=== PATIENT | male | born 1980 | race Caucasian/White ===

== ENCOUNTER 2017-02-12 02:00 | Emergency (ER) | payer MEDICAID, OTHER ==
[2017-02-12 02:00] VITALS: BMI 31.8
[2017-02-12 02:44] VITALS: BP 142/76; PULSE 78; O2SAT 99
[2017-02-12 02:46] VITALS: TEMP 97.8
--- NOTE | 2017-02-12 02:56 | ED PDOC ---
Arrival/HPI - General Chief Complaint: Medical Clearance Time Seen by Provider: 02/12/17 02:48 Historian: Patient - History of Present Illness Narrative History of Present Illness (Text): 02/12/17 02:56 Angel Gutierrez is a 36 year old male who presents to the emergency department complaining of erythematous rash to forehead for past 2 days. Associated symptoms include pain to the area of rash. Denies any fever, chills, chest pain , shortness of breath, facial swelling, pruritus, or any other complaints at this time. Time/Duration: < week Symptom Onset: Gradual Severity Level: Mild Activities at Onset: Light Past Medical History - Provider Review Nursing Documentation Reviewed: Yes - Infectious Disease Hx of Infectious Diseases: None - Reproductive Currently : No - Cardiac Hx Cardiac Disorders: No - Pulmonary Hx Respiratory Disorders: No - Neurological Hx Neurological Disorder: No - HEENT Hx HEENT Disorder: No - Renal Other/Comment: 1 FUNCTIONING KIDNEY per patient. 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, coccaine - Anesthesia Hx Anesthesia: No Hx Anesthesia Reactions: No Hx Malignant Hyperthermia: No - Suicidal Assessment Feels Threatened In Home Enviroment: No Family/Social History - Physician Review Nursing Documentation Reviewed: Yes Family/Social History: No Known Family HX Smoking Status: Heavy Smoker > 10 Cigarettes Daily Hx Alcohol Use: No Hx Substance Use: Yes (coccaine, heroine) Hx Substance Use Treatment: No Allergies/Home Meds Allergies/Adverse Reactions: Allergies iodine Allergy (Verified 02/12/17 02:41) RASH shellfish derived Allergy (Verified 02/12/17 02:41) RASH dye Allergy (Uncoded 02/12/17 02:41) RASH Home Medications: Home Meds Medication Instructions Recorded Confirmed Methadone [Methadone HCl] 140 mg PO DAILY 02/12/17 02/12/17 Review of Systems - Physician Review All systems were reviewed & negative as marked: Yes - Review of Systems Constitutional: Normal. absent: Fatigue, Fevers Eyes: Normal ENT: Normal Respiratory: Normal. absent: SOB, Cough, Sputum Cardiovascular: Normal. absent: Chest Pain, Palpitations Gastrointestinal: Normal. absent: Abdominal Pain, Diarrhea, Nausea, Vomiting Skin: Rash (forehead ). absent: Pruritis Neurological: Normal. absent: Headache, Dizziness Psychiatric: Normal Physical Exam Vital Signs Reviewed: Yes Vital Signs Temp Pulse Resp BP Pulse Ox 02/12/17 04:00 20 02/12/17 02:43 97.8 F 78 18 142/76 99 Temperature: Afebrile Blood Pressure: Normal Pulse: Regular Respiratory Rate: Normal Appearance: Positive for: Well-Appearing, Non-Toxic, Comfortable Pain Distress: None Mental Status: Positive for: Alert and Oriented X 3 - Systems Exam Head: Present: Atraumatic, Normocephalic Pupils: Present: PERRL Extroacular Muscles: Present: EOMI Conjunctiva: Present: Normal Mouth: Present: Moist Mucous Membranes Respiratory/Chest: Present: Clear to Auscultation, Good Air Exchange. No: Respiratory Distress, Accessory Muscle Use Cardiovascular: Present: Regular Rate and Rhythm, Normal S1, S2. No: Murmurs Abdomen: Present: Normal Bowel Sounds. No: Tenderness, Distention, Peritoneal Signs Upper Extremity: Present: Normal Inspection. No: Cyanosis, Edema Lower Extremity: Present: Normal Inspection. No: Edema Neurological: Present: GCS=15, CN II-XII Intact, Speech Normal Skin: Present: Warm, Dry, Rashes (vesicular rash on forehead ), Normal Color Psychiatric: Present: Alert, Oriented x 3, Normal Insight, Normal Concentration Medical Decision Making ED Course and Treatment: 02/12/17 03:03 Impression: A 36 year old male who presents to the emergency department for evaluation of rash on forehead. Plan: -- Famvir -- Ultracet -- Reassess and disposition Progress Notes: 02/12/17 03:46 On re-evaluation, patient feels better and is in no acute distress. I have discussed the results and plan with the patient, who expresses understanding. Patient in agreement with plan to be discharged home. Patient is stable for discharge. Patient was instructed to follow up with physician or return if symptoms worsen or new concerning symptoms arise. stressed importance of ophthalmology follow up 02/14/17 08:53 Re-evaluation Time: 03:46 Reassessment Condition: Re-examined, Improved - Medication Orders Current Medication Orders: Discontinued Medications Famciclovir (Famvir) 500 mg PO STAT STA Stop: 02/12/17 02:56 Last Admin: 02/12/17 03:57 Dose: 500 mg Tramadol/Acetaminophen (Ultracet 37.5/325 Mg) 1 tab PO ONCE STA Stop: 02/12/17 03:49 Last Admin: 02/12/17 03:51 Dose: 1 tab Tramadol/Acetaminophen (Ultracet 37.5/325 Mg) Confirm Administered Dose 1 tab .ROUTE .STK-MED ONE Stop: 02/12/17 03:52 Last Admin: 02/12/17 03:57 Dose: - Scribe Statement The provider has reviewed the documentation as recorded by the Rafaelaibe Zay Posadas Provider Attestation: Provider Scribe Attestation: All medical record entries made by the Scribe were at my direction and personally dictated by me. I have reviewed the chart and agree that the record accurately reflects my personal performance of the history, physical exam, medical decision making, and the department course for this patient. I have also personally directed, reviewed, and agree with the discharge instructions and disposition. Disposition/Present on Arrival - Present on Arrival Any Indicators Present on Arrival: No History of DVT/PE: No History of Uncontrolled Diabetes: No Urinary Catheter: No History of Decub. Ulcer: No History Surgical Site Infection Following: None - Disposition Have Diagnosis and Disposition been Completed?: Yes Diagnosis: Herpes zoster Disposition: HOME/ ROUTINE Disposition Time: 03:47 Condition: GOOD Discharge Instructions (ExitCare): Shingles (ED) Prescriptions: Famciclovir [Famvir] 500 mg PO TID #21 tab Referrals: Casper Ramos MD [Staff Provider] - Follow up with primary Forms: [employer] ([place])
[2017-02-12] MEDS ORDERED: Oxycodone/Acetaminophen 5/325 mg Tab PO STA (03:33)
[2017-02-12] MEDS ORDERED: TraMADol/Apap 37.5/325 mg Tab PO STA (03:48)
[2017-02-12] MEDS ORDERED: TraMADol/Apap 37.5/325 mg Tab ONE (03:51)
[2017-02-12 06:13] VITALS: RESP 20
== END 2017-02-12 03:50 | disposition home or self-care (01) ==
LOC: ED 02:00
DX: B02.9 Zoster without complications (principal)

== ENCOUNTER 2017-03-24 05:30 | Emergency (ER) | payer MEDICAID ==
[2017-03-24 05:31] VITALS: BMI 31.8
--- NOTE | 2017-03-24 05:50 | ED PDOC ---
Arrival/HPI <Kota Pickett - Last Filed: 03/24/17 14:46> - General Historian: Patient - History of Present Illness Time/Duration: Other (tonight) Symptom Onset: Sudden Symptom Course: Unchanged Activities at Onset: Light Context: Home <Amandeep Shaver - Last Filed: 03/24/17 20:08> - General Time Seen by Provider: 03/24/17 05:32 - History of Present Illness Narrative History of Present Illness (Text): 03/24/17 05:46 Angel Gutierrez is a 36 year old male who presents to the Emergency department complaining of right hand pain status post injury. Patient states he fell on to his outstretched right hand yesterday and is now experiencing pain with some swelling to his right hand/wrist. Patient denies any weakness/numbness/tingling in the extremity, other trauma/injury, or any other complaints. Patient is requesting pain medication. (Amandeep Shaver) Past Medical History - Provider Review Nursing Documentation Reviewed: Yes - Infectious Disease Hx of Infectious Diseases: None - Reproductive Currently : No - Cardiac Hx Cardiac Disorders: No - Pulmonary Hx Respiratory Disorders: No - Neurological Hx Neurological Disorder: No - HEENT Hx HEENT Disorder: No - Renal Other/Comment: 1 FUNCTIONING KIDNEY per patient. 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, coccaine - Anesthesia Hx Anesthesia: No Hx Anesthesia Reactions: No Hx Malignant Hyperthermia: No - Suicidal Assessment Feels Threatened In Home Enviroment: No <Amandeep Shaver - Last Filed: 03/24/17 20:08> Family/Social History - Physician Review Nursing Documentation Reviewed: Yes Family/Social History: Unknown Family HX Smoking Status: Heavy Smoker > 10 Cigarettes Daily Hx Alcohol Use: No Hx Substance Use: Yes (coccaine, heroine) Hx Substance Use Treatment: No <Amandeep Shaver - Last Filed: 03/24/17 20:08> Allergies/Home Meds <Kota Pickett - Last Filed: 03/24/17 14:46> <Amandeep Shaver - Last Filed: 03/24/17 20:08> Allergies/Adverse Reactions: Allergies iodine Allergy (Verified 03/24/17 05:55) RASH shellfish derived Allergy (Verified 03/24/17 05:55) RASH dye Allergy (Uncoded 03/24/17 05:55) RASH Review of Systems - Physician Review All systems were reviewed & negative as marked: Yes - Review of Systems Constitutional: Normal. absent: Fevers Eyes: Normal ENT: Normal Respiratory: Normal. absent: SOB, Cough Cardiovascular: Normal. absent: Chest Pain Gastrointestinal: Normal. absent: Abdominal Pain, Diarrhea, Nausea, Vomiting Genitourinary Male: Normal. absent: Dysuria, Frequency, Hematuria, Urinary Output Changes Musculoskeletal: Arthralgias (+right hand/wrist pain). absent: Back Pain, Neck Pain Skin: Normal. absent: Rash Neurological: Normal. absent: Headache, Dizziness Endocrine: Normal Hemo/Lymphatic: Normal Psychiatric: Normal <AnitaabramAmandeep - Last Filed: 03/24/17 20:08> Physical Exam Vital Signs Reviewed: Yes Temperature: Afebrile Blood Pressure: Normal Pulse: Regular Respiratory Rate: Normal Appearance: Positive for: Well-Appearing, Non-Toxic, Comfortable Pain Distress: None Mental Status: Positive for: Alert and Oriented X 3 - Systems Exam Head: Present: Atraumatic, Normocephalic Pupils: Present: PERRL Extroacular Muscles: Present: EOMI Conjunctiva: Present: Normal Mouth: Present: Moist Mucous Membranes Upper Extremity: Present: Normal ROM, NORMAL PULSES, Neurovascularly Intact, Capillary Refill < 2s, Other (Ecchymosis over right hypothenar eminence). No: Cyanosis, Edema, Tenderness, Erythema, Deformity Lower Extremity: Present: Normal Inspection. No: Edema Neurological: Present: GCS=15, CN II-XII Intact, Speech Normal Skin: Present: Warm, Dry, Normal Color. No: Rashes Psychiatric: Present: Alert, Oriented x 3, Normal Insight, Normal Concentration <AnitaabramAmandeep - Last Filed: 03/24/17 20:08> Vital Signs Temp Pulse Resp BP Pulse Ox 03/24/17 05:58 98.3 F 86 16 115/74 97 Medical Decision Making - RAD Interpretation Safety Representative: Radiologist <Pickett,Kota Q - Last Filed: 03/24/17 14:46> Re-evaluation Time: 06:40 Reassessment Condition: Re-examined, Improved - RAD Interpretation Safety Representative: ED Physician <Amandeep Shaver - Last Filed: 03/24/17 20:08> ED Course and Treatment: 03/24/17 14:46 As per the radiologist Dr. Chilel: Rt. hand/wrist xray official reading as per radiologist IMPRESSION: There is an intra-articular fracture of the base of the proximal 5th metacarpal that, the age of which appears subacute to chronic. Questionable surrounding callus formation versus resorption of bony fragments however clinical correlation recommended. Degenerative changes of the proximal 5th metacarpal and hamate. Rule out acute injury superimposed on chronic injury. Soft tissue swelling is present as well though most pronounced along the dorsal and ulnar margins of the hand. Degenerative changes of the proximal 5th metacarpal and hamate. . Note this report was placed in PA review folder for followup IMPRESSION: There is an intra-articular fracture of the base of the proximal 5th metacarpal that, the age of which appears subacute to chronic. Questionable surrounding callus formation versus resorption of bony fragments however clinical correlation recommended. Degenerative changes of the proximal 5th metacarpal and hamate. . Soft tissue swelling is present as well though most pronounced along the dorsal and ulnar margins of the hand. Degenerative changes of the proximal 5th metacarpal and hamate. Note this report was placed in PA review folder for followup I attempted to call the patient regarding about the xray readings, answer by another person as the patient is not available, advised to call back. (Kota Pickett) 03/24/17 05:46 Impression: 36 year old male complaining of right hand/wrist pain status post fall tonight. Differential Diagnosis included but are not limited to: fracture vs. sprain Plan: -- XR Right Hand -- XR Wrist Hand -- Percocet -- Reassess and disposition Prior Visits: Notes and results from previous visits were reviewed. On 02/12/2017, pt was seen in the Emergency department complaining of a rash. Pt was d/c home. Progress Notes: 03/24/17 06:39 Reviewed radiology, XR Right Hand shows no acute fracture/processes.BASE 5TH metacarpal chronic changes no acute fx XR Right Wrist shows no acute fracture/processes. 03/24/17 06:40 On reevaluation the patient feels better and is in no acute distress. I have discussed the results and plan with the patient, who expresses understanding. Patient given the opportunity to ask question, all questions were answered and there is agreement with the plan to discharge the patient home. Patient is stable for discharge. Patient was instructed to follow up with physician/clinic in 1-2 days or return if symptoms persist/worsen or new concerning symptoms arise. 03/24/17 20:08 (Amandeep Shaver) - RAD Interpretation Radiology Orders: 03/24/17 05:56 HAND RIGHT 3 VIEWS [RAD] Stat WRIST, RIGHT 3 VIEWS [RAD] Stat - Medication Orders Current Medication Orders: Discontinued Medications Ketorolac Tromethamine (Toradol) 30 mg IM ONCE ONE Stop: 03/24/17 06:47 Last Admin: 03/24/17 06:54 Dose: 30 mg Oxycodone/Acetaminophen (Percocet 5/325 Mg Tab) 1 tab PO STAT STA Stop: 03/24/17 05:57 Last Admin: 03/24/17 06:04 Dose: 1 tab <Kota Pickett - Last Filed: 03/24/17 14:46> - Scribe Statement The provider has reviewed the documentation as recorded by the Scribe <Amandeep Shaver - Last Filed: 03/24/17 20:08> - Scribe Statement Michelle Masters Provider Scribe Attestation: All medical record entries made by the Scribe were at my direction and personally dictated by me. I have reviewed the chart and agree that the record accurately reflects my personal performance of the history, physical exam, medical decision making, and the department course for this patient. I have also personally directed, reviewed, and agree with the discharge instructions and disposition. (Amandeep Shaver) Disposition/Present on Arrival <Kota Pickett - Last Filed: 03/24/17 14:46> - Present on Arrival Any Indicators Present on Arrival: No History of DVT/PE: No History of Uncontrolled Diabetes: No Urinary Catheter: No History Surgical Site Infection Following: None - Disposition Have Diagnosis and Disposition been Completed?: Yes Disposition Time: 06:40 <Amandeep Shaver - Last Filed: 03/24/17 20:08> - Disposition Diagnosis: Contusion of hand, right Disposition: HOME/ ROUTINE Condition: GOOD Discharge Instructions (ExitCare): Hand Sprain (ED) Additional Instructions: use splint 4 to 5 days follow up with orthopedics Prescriptions: Naproxen [Naprosyn Tab] 375 mg PO BID #12 tab Referrals: [facility] [place] [Outside] - [place] [facility] [place] [facility] [place] - Follow up with primary Forms: [employer] ([place])
[2017-03-24] MEDS ORDERED: Oxycodone/Acetaminophen 5/325 mg Tab PO STA (05:56)
[2017-03-24 06:02] VITALS: BP 115/74; PULSE 86; RESP 16; TEMP 98.3; O2SAT 97
--- NOTE | 2017-03-24 11:14 | RAD ---
PROCEDURE: Right wrist dated 03/24/2017 HISTORY: f status post fall COMPARISON: No prior study available comparison however correlation made with concurrent radiographs the common the right hand FINDINGS: BONES: There is an intra-articular fracture of the base of the proximal 5th metacarpal that, the age of which appears subacute to chronic. Questionable surrounding callus formation versus resorption of bony fragments however clinical correlation recommended. Degenerative changes of the proximal 5th metacarpal and hamate. . Soft tissue swelling is present as well though most pronounced along the dorsal and ulnar margins of the hand. JOINTS: As above. There is also negative ulnar variance. SOFT TISSUES: Normal. OTHER FINDINGS: None. IMPRESSION: There is an intra-articular fracture of the base of the proximal 5th metacarpal that, the age of which appears subacute to chronic. Questionable surrounding callus formation versus resorption of bony fragments however clinical correlation recommended. Degenerative changes of the proximal 5th metacarpal and hamate. . Soft tissue swelling is present as well though most pronounced along the dorsal and ulnar margins of the hand. Degenerative changes of the proximal 5th metacarpal and hamate. Note this report was placed in PA review folder for followup
--- NOTE | 2017-03-24 11:16 | RAD ---
PROCEDURE: Right Hand Radiographs. HISTORY: fall COMPARISON: None. FINDINGS: BONES: There is an intra-articular fracture of the base of the proximal 5th metacarpal that, the age of which appears subacute to chronic. Questionable surrounding callus formation versus resorption of bony fragments however clinical correlation recommended. Degenerative changes of the proximal 5th metacarpal and hamate. Rule out acute injury superimposed on chronic at injury. Soft tissue swelling is present as well though most pronounced along the dorsal and ulnar margins of the hand. Note this report was placed in PA review folder for followup JOINTS: Degenerative changes of the proximal 5th metacarpal and hamate. SOFT TISSUES: Normal. OTHER FINDINGS: None. IMPRESSION: There is an intra-articular fracture of the base of the proximal 5th metacarpal that, the age of which appears subacute to chronic. Questionable surrounding callus formation versus resorption of bony fragments however clinical correlation recommended. Degenerative changes of the proximal 5th metacarpal and hamate. Rule out acute injury superimposed on chronic injury. Soft tissue swelling is present as well though most pronounced along the dorsal and ulnar margins of the hand. Degenerative changes of the proximal 5th metacarpal and hamate. . Note this report was placed in PA review folder for followup
== END 2017-03-24 06:56 | disposition home or self-care (01) ==
LOC: ED 05:30
DX: S60.221A Contusion of right hand, initial encounter (principal); W19.XXXA Unspecified fall, initial encounter
CPT/HCPCS: 73110; 73130; 96372; 99284; J1885

== ENCOUNTER 2017-05-09 01:45 | Emergency (ER) | payer MEDICAID ==
[2017-05-09 01:45] VITALS: BMI 31.8
[2017-05-09 02:00] VITALS: BP 145/92; TEMP 98.1
--- NOTE | 2017-05-09 02:04 | ED PDOC ---
Arrival/HPI - General Time Seen by Provider: 05/09/17 01:49 Historian: Patient - History of Present Illness Narrative History of Present Illness (Text): 05/09/17 02:04 Angel Gutierrez is a 37 year old male, whose past medical history include atrophic kidney, hepatitis C, and substance abuse, who presents to the Emergency department complaining of abdominal pain. Patient states he has been experiencing intermittent diffuse abdominal pain since yesterday morning, gradually worsening tonight. Patient also reports pain to right inguinal hernia. Patient denies fever, chills, chest pain, shortness of breath, nausea, vomiting, diarrhea, urinary symptoms, back pain, headache,or any other complaints. Time/Duration: Other (yesterday) Symptom Onset: Gradual Symptom Course: Unchanged Activities at Onset: Light Context: Home Past Medical History - Provider Review Nursing Documentation Reviewed: Yes - Infectious Disease Hx of Infectious Diseases: None - Reproductive Currently : No - Cardiac Hx Cardiac Disorders: No - Pulmonary Hx Respiratory Disorders: No - Neurological Hx Neurological Disorder: No - HEENT Hx HEENT Disorder: No - Renal Other/Comment: 1 FUNCTIONING KIDNEY per patient. 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, coccaine - Anesthesia Hx Anesthesia: No Hx Anesthesia Reactions: No Hx Malignant Hyperthermia: No - Suicidal Assessment Feels Threatened In Home Enviroment: No Family/Social History - Physician Review Nursing Documentation Reviewed: Yes Family/Social History: Unknown Family HX Smoking Status: Heavy Smoker > 10 Cigarettes Daily Hx Alcohol Use: No Hx Substance Use: No (coccaine, heroine) Hx Substance Use Treatment: No Allergies/Home Meds Allergies/Adverse Reactions: Allergies iodine Allergy (Verified 05/09/17 01:56) RASH shellfish derived Allergy (Verified 05/09/17 01:56) RASH dye Allergy (Uncoded 05/09/17 01:56) RASH Home Medications: Home Meds Medication Instructions Recorded Confirmed No Known Home Med 05/09/17 05/09/17 Review of Systems - Physician Review All systems were reviewed & negative as marked: Yes - Review of Systems Constitutional: Normal. absent: Fevers Eyes: Normal ENT: Normal Respiratory: Normal. absent: SOB, Cough Cardiovascular: Normal. absent: Chest Pain Gastrointestinal: Abdominal Pain. absent: Diarrhea, Nausea, Vomiting Genitourinary Male: Normal. absent: Dysuria, Frequency, Hematuria, Urinary Output Changes Musculoskeletal: Normal. absent: Back Pain, Neck Pain Skin: Normal. absent: Rash Neurological: Normal. absent: Headache, Dizziness Endocrine: Normal Hemo/Lymphatic: Normal Psychiatric: Normal Physical Exam Vital Signs Reviewed: Yes Vital Signs Temp Pulse Resp BP Pulse Ox 05/09/17 03:51 95 H 18 145/92 H 98 05/09/17 01:57 98.1 F 83 16 145/92 H 97 Temperature: Afebrile Blood Pressure: Normal Pulse: Regular Respiratory Rate: Normal Appearance: Positive for: Well-Appearing, Non-Toxic, Comfortable Pain Distress: None Mental Status: Positive for: Alert and Oriented X 3 - Systems Exam Head: Present: Atraumatic, Normocephalic Pupils: Present: PERRL Extroacular Muscles: Present: EOMI Conjunctiva: Present: Normal Mouth: Present: Moist Mucous Membranes Neck: Present: Normal Range of Motion Respiratory/Chest: Present: Clear to Auscultation, Good Air Exchange. No: Respiratory Distress, Accessory Muscle Use Cardiovascular: Present: Regular Rate and Rhythm, Normal S1, S2. No: Murmurs Abdomen: Present: Tenderness (lower abdomen), Normal Bowel Sounds, Hernias ( Reducible right inguinal hernia/some palpable tenderness). No: Distention, Peritoneal Signs, Rebound, Guarding Back: Present: Normal Inspection Upper Extremity: Present: Normal Inspection. No: Cyanosis, Edema Lower Extremity: Present: Normal Inspection. No: Edema Neurological: Present: GCS=15, CN II-XII Intact, Speech Normal Skin: Present: Warm, Dry, Normal Color. No: Rashes Psychiatric: Present: Alert, Oriented x 3, Normal Insight, Normal Concentration Medical Decision Making ED Course and Treatment: 05/09/17 02:04 Impression: 37 year old male complaining of diffuse abdominal pain since yesterday, worse tonight. Plan: -- CT Abdomen and Pelvis with PO contrast -- Labs, lipase -- IV fluids -- Toradol -- Reassess and disposition Prior Visits: Notes and results from previous visits were reviewed. On 03/24/2017, pt was seen in the Emergency department for right hand pain s/p injury. Pt was d/c home. Progress Notes: 05/09/17 05:31 Reviewed radiology, CT Abdomen and Pelvis shows: 1. Right inguinal herniation of fat and fluid. There is infiltration of the right inguinal herniated fat. These findings are new when compared to prior examination from May 23, 2015. 2. Contracted gallbladder with gallbladder wall thickening and possible hyperdense gallstone or artifact. 3. The spleen measures 17 cm. Correlation with internal medicine evaluation and further workup or followup as recommended by patient's clinical data. 05/09/17 05:35 Discussed results and plan with pt. Pt was offered hospital admission for further evaluation. Pt does not wish to stay, states he family matters to take care of and will return at a later date. Pt was strongly advised need for further evaluation of possible underlying intestinal infection/appendicitis/ hernia strangulation. Pt will sign out against medical advice. The patient is choosing to leave against medical advice. I have personally explained to the patient that choosing to do so may result in permanent bodily harm or . I have discussed at great length that without further evaluation and monitoring there may be unforeseen circumstances and/or deterioration causing permanent bodily harm or as a result of their choice. The patient is alert, oriented, and shows the mental capacity to make clear decisions regarding the patients health care at this time. The patient continues to wish to leave against medical advice. In light of the patients decision to leave against medical advice, patient was made aware of the importance to following up as instructed. The patient has been advised that they should return to the emergency room immediately if they change their mind at any time, or if their condition begins to change or worsen in any way. - Lab Interpretations Lab Results: 05/09/17 02:22 05/09/17 02:22 Lab Results 05/09/17 03:08: Urine Color Yellow, Urine Appearance Clear, Urine pH 6.5, Ur Specific [place] 1.025, Urine Protein Negative, Urine Glucose (UA) Negative, Urine Ketones Negative, Urine Blood Negative, Urine Nitrate Negative, Urine Bilirubin Negative, Urine Urobilinogen 0.2, Ur Leukocyte Esterase Negative 05/09/17 02:22: WBC 3.5 L, RBC 5.15, Hgb 12.8 L, Hct 39.3 L, MCV 76.3 L, MCH 24.9 L, MCHC 32.6, RDW 15.0 H, Plt Count 164, MPV 9.6 05/09/17 02:22: Sodium 142, Potassium 4.3, Chloride 103, Carbon Dioxide 32, Anion Gap 11, BUN 20, Creatinine 1.0, Est GFR ( Amer) > 60, Est GFR (Non- Af Amer) > 60, Random Glucose 99, Calcium 9.4, Total Bilirubin 0.6, AST 35, ALT 43, Alkaline Phosphatase 63, Total Protein 7.2, Albumin 3.8, Globulin 3.4, Albumin/Globulin Ratio 1.1, Lipase 55 I have reviewed the lab results: Yes - RAD Interpretation Narrative RAD Interpretations (Text): CT Abdomen and Pelvis shows: Lower thorax: Small hiatal hernia. ABDOMEN: Liver: Unremarkable. No mass. Gallbladder and bile ducts: Contracted gallbladder with gallbladder wall thickening and possible hyperdense gallstone or artifact. Pancreas: Unremarkable. No mass. No ductal dilation. Spleen: The spleen measures 17 cm. Adrenals: Unremarkable. No mass. Kidneys and ureters: Atrophic dysplastic left kidney with cortical calcifications. No hydronephrosis. Stomach and bowel: Diverticulosis. Moderate to moderate amount of stool in the colon. No obstruction. No mucosal thickening. Appendix: The appendix not identified with complete certainty due to unopacified cecum and distal small bowel. There is lack of intra-abdominal fat. If clinical concern remains, a repeat study with thin sections after an appropriate time interval may allow oral contrast to opacify the cecum. PELVIS: Bladder: Partially distended bladder with bladder wall thickening. Correlation with urinalysis is recommended only if clinical cystitis is suspected. Reproductive: Unremarkable. ABDOMEN and PELVIS: Intraperitoneal space: Unremarkable. No free air. No significant fluid collection. Bones/joints: No acute fracture. No dislocation. Soft tissues: Right inguinal herniation of fat and fluid. There is infiltration of the right inguinal herniated fat. These findings are new when compared to prior examination from May 23, 2015. Mild left inguinal herniation of fat. Vasculature: There is enlargement of portal vein with perigastric and perisplenic varices representing portal hypertension. No abdominal aortic aneurysm. Lymph nodes: Bilateral groin lymph nodes. Subcentimeter para-aortic and retroperitoneal lymph nodes. IMPRESSION: 1. Right inguinal herniation of fat and fluid. There is infiltration of the right inguinal herniated fat. These findings are new when compared to prior examination from May 23, 2015. 2. Contracted gallbladder with gallbladder wall thickening and possible hyperdense gallstone or artifact. 3. The spleen measures 17 cm. Correlation with internal medicine evaluation and further workup or followup as recommended by patient's clinical data. 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: Radiologist - Medication Orders Current Medication Orders: Discontinued Medications Sodium Chloride (Sodium Chloride 0.9%) 1,000 mls @ 999 mls/hr IV .Q1H1M STA Stop: 05/09/17 03:05 Last Admin: 05/09/17 02:41 Dose: 999 mls/hr eMAR Start Stop Document 05/09/17 02:41 SS (Rec: 05/09/17 02:41 SS [id number]) Intravenous Solution Start Date 05/09/17 Start Time 02:41 End Date 05/09/17 End time 03:41 Total Infusion Time 60 Ketorolac Tromethamine (Toradol) 30 mg IVP ONCE ONE Stop: 05/09/17 02:09 Last Admin: 05/09/17 02:41 Dose: 30 mg MAR Pain Assessment Document 05/09/17 02:41 SS (Rec: 05/09/17 02:42 SS [id number]) Pain Reassessment Is this a pain reassessment? No Sleep Is patient sleeping during reassessment? No Presence of Pain Presence of Pain Yes Pain Scale Used Pain Scale Used Numeric Location Pain Location Body Site Abdomen Description Intensity of Pain at present 10 Pain Behavior Facial Grimacing IVP Administration Document 05/09/17 02:41 SS (Rec: 05/09/17 02:42 SS [id number]) Charges for Administration # of IVP Administrations 1 Morphine Sulfate (Morphine) 4 mg IVP STAT STA Stop: 05/09/17 04:44 Last Admin: 05/09/17 04:56 Dose: 4 mg IVP Administration Document 05/09/17 04:56 SS (Rec: 05/09/17 04:56 SS [id number]) Charges for Administration # of IVP Administrations 1 - Scribe Statement The provider has reviewed the documentation as recorded by the Scribe Michelle Guerrero All medical record entries made by the Scribe were at my direction and personally dictated by me. I have reviewed the chart and agree that the record accurately reflects my personal performance of the history, physical exam, medical decision making, and the department course for this patient. I have also personally directed, reviewed, and agree with the discharge instructions and disposition. Disposition/Present on Arrival - Present on Arrival Any Indicators Present on Arrival: No History of DVT/PE: No History of Uncontrolled Diabetes: No Urinary Catheter: No History of Decub. Ulcer: No History Surgical Site Infection Following: None - Disposition Have Diagnosis and Disposition been Completed?: Yes Diagnosis: Abdominal pain Disposition: AGAINST MEDICAL ADVICE Disposition Time: 05:40 Condition: STABLE Referrals: Humberto Johnson MD [Primary Care Provider] - Follow up with primary Forms: [employer] ([place])
[2017-05-09] MEDS ORDERED: Sodium Chloride 0.9% 1,000 ML IV STA (02:05)
[2017-05-09] MEDS ORDERED: Iohexol 240 (50 ml) ONE (02:14)
[2017-05-09 02:43] LABS: ALB/GLOB RATIO 1.1 (1.1-1.8); ALKALINE PHOSPHATASE 63 U/L (38-126); ALT/SGPT 43 U/L (7-56); AST/SGOT 35 U/L (17-59); BILIRUBIN,TOTAL 0.6 mg/dL (0.2-1.3); BLOOD UREA NITROGEN 20 mg/dL (7-21); CALCIUM 9.4 mg/dL (8.4-10.5); CARBON DIOXIDE 32 mmol/L (21-33); CHLORIDE 103 mmol/L (95-110); GFR AFRICAN-AMERICAN > 60; GLUCOSE,RANDOM 99 mg/dL (70-110); LIPASE 55 U/L (23-300); POTASSIUM 4.3 mmol/L (3.6-5.0); SODIUM 142 mmol/L (132-148); TOTAL PROTEIN 7.2 g/dL (5.8-8.3)
[2017-05-09 02:58] LABS: HEMATOCRIT 39.3 % (42.0-52.0); MEAN CELL VOLUME 76.3 fl (80.0-105.0); MEAN CORPUSCULAR HEMOGLOBIN 24.9 pg (25.0-35.0); MEAN CORPUSCULAR HGB CONC 32.6 g/dl (31.0-37.0); MEAN PLATELET VOLUME 9.6 fl (7.0-11.0); WHITE BLOOD COUNT 3.5 10^3/ul (4.5-11.0)
[2017-05-09 03:22] LABS: PH,URINE 6.5 (4.7-8.0); URINE BILIRUBIN NEGATIVE (NEGATIVE); URINE BLOOD NEGATIVE (NEGATIVE); URINE GLUCOSE (UA) NEGATIVE (NEGATIVE); URINE KETONE NEGATIVE (NEGATIVE); URINE LEUKOCYTE ESTERASE NEGATIVE Leu/uL (NEGATIVE); URINE PROTEIN NEGATIVE mg/dL (<30 mg/dL); URINE UROBILINOGEN 0.2 E.U./dL (<1 E.U./dL)
[2017-05-09 03:32] LABS: URINE APPEARANCE CLEAR (CLEAR); URINE COLOR YELLOW (YELLOW)
[2017-05-09 03:52] VITALS: PULSE 95; RESP 18; O2SAT 98
[2017-05-09] MEDS ORDERED: Morphine 5 MG/ML SYRINGE IVP STA (04:43)
--- NOTE | 2017-05-09 05:30 | CT ---
EXAM: CT Abdomen and Pelvis With Intravenous Contrast CLINICAL HISTORY: 37 years old, male; Pain; Abdominal pain; Generalized TECHNIQUE: Axial computed tomography images of the abdomen and pelvis with intravenous contrast. All CT scans at this facility use one or more dose reduction techniques, viz.: automated exposure control; ma/kV adjustment per patient size (including targeted exams where dose is matched to indication; i.e. head); or iterative reconstruction technique. Oral contrast was administered. 715 images are submitted. Axial images are submitted in soft tissue and lung windows. Coronal and sagittal reformatted images were created and reviewed. CONTRAST: 50 mL of OMNI 240 administered intravenously. COMPARISON: CT - ABD PELVIS W/O PO OR IV CONT 2015-05-23 01:21 FINDINGS: Lower thorax: Small hiatal hernia. ABDOMEN: Liver: Unremarkable. No mass. Gallbladder and bile ducts: Contracted gallbladder with gallbladder wall thickening and possible hyperdense gallstone or artifact. Pancreas: Unremarkable. No mass. No ductal dilation. Spleen: The spleen measures 17 cm. Adrenals: Unremarkable. No mass. Kidneys and ureters: Atrophic dysplastic left kidney with cortical calcifications. No hydronephrosis. Stomach and bowel: Diverticulosis. Moderate to moderate amount of stool in the colon. No obstruction. No mucosal thickening. Appendix: The appendix not identified with complete certainty due to unopacified cecum and distal small bowel. There is lack of intra-abdominal fat. If clinical concern remains, a repeat study with thin sections after an appropriate time interval may allow oral contrast to opacify the cecum. PELVIS: Bladder: Partially distended bladder with bladder wall thickening. Correlation with urinalysis is recommended only if clinical cystitis is suspected. Reproductive: Unremarkable. ABDOMEN and PELVIS: Intraperitoneal space: Unremarkable. No free air. No significant fluid collection. Bones/joints: No acute fracture. No dislocation. Soft tissues: Right inguinal herniation of fat and fluid. There is infiltration of the right inguinal herniated fat. These findings are new when compared to prior examination from May 23, 2015. Mild left inguinal herniation of fat. Vasculature: There is enlargement of portal vein with perigastric and perisplenic varices representing portal hypertension. No abdominal aortic aneurysm. Lymph nodes: Bilateral groin lymph nodes. Subcentimeter para-aortic and retroperitoneal lymph nodes. IMPRESSION: 1. Right inguinal herniation of fat and fluid. There is infiltration of the right inguinal herniated fat. These findings are new when compared to prior examination from May 23, 2015. 2. Contracted gallbladder with gallbladder wall thickening and possible hyperdense gallstone or artifact. 3. The spleen measures 17 cm. Correlation with internal medicine evaluation and further workup or followup as recommended by patient's clinical data.
== END 2017-05-09 05:45 | disposition left against medical advice (07) ==
LOC: ED 01:45
DX: R10.9 Unspecified abdominal pain (principal); F17.210 Nicotine dependence, cigarettes, uncomplicated
CPT/HCPCS: 74176; 80053; 81003; 83690; 85027; 96361; 96374; 96375; 99284; J1885; J2270; J7040; Q9966

== ENCOUNTER 2017-08-27 03:31 | Emergency (ER) | payer MEDICAID, OTHER ==
[2017-08-27 03:32] VITALS: BMI 31.8
--- NOTE | 2017-08-27 03:55 | ED PDOC ---
Arrival/HPI - General Chief Complaint: Abdominal Pain Historian: Patient - History of Present Illness Narrative History of Present Illness (Text): 08/27/17 03:53 Pt is a 37 yo M with PMH of hepatitis C and only 1 functioning kidney presents to ED with complaints of right inguinal hernia pain. Pt states that he was evaluated in May for similar pain and was advised to be admitted, but left AMA at that time. CT obtained during that time showed right inguinal herniation of fat and fluid. Pt states that typically he is able to reduce the hernia. But over the last 48 hours patient states that he has been unable to reduce hernia and has vomited several times. Pt denied CP, SOB, diarrhea, constipation, dysuria, erythema, discharge. PMD: [place] Time/Duration: Other (2 days) Symptom Onset: Gradual Symptom Course: Worsening Past Medical History - Infectious Disease Hx of Infectious Diseases: None - Cardiac Hx Cardiac Disorders: No - Pulmonary Hx Respiratory Disorders: No - Neurological Hx Neurological Disorder: No - HEENT Hx HEENT Disorder: No - Renal Other/Comment: 1 FUNCTIONING KIDNEY per patient. 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, coccaine - Surgical History Hx Tonsillectomy: Yes - Anesthesia Hx Anesthesia: No Hx Anesthesia Reactions: No Hx Malignant Hyperthermia: No - Suicidal Assessment Feels Threatened In Home Enviroment: No Family/Social History Family/Social History: No Known Family HX Smoking Status: Heavy Smoker > 10 Cigarettes Daily Hx Alcohol Use: Yes Frequency of alcohol use: Socially Hx Substance Use: No (coccaine, heroine) Hx Substance Use Treatment: No Allergies/Home Meds Allergies/Adverse Reactions: Allergies iodine Allergy (Verified 08/27/17 03:48) RASH shellfish derived Allergy (Verified 08/27/17 03:48) RASH ct scan dye Allergy (Uncoded 08/27/17 03:49) RASH hives Home Medications: Home Meds Medication Instructions Recorded Confirmed No Known Home Med 05/09/17 08/27/17 Review of Systems - Physician Review All systems were reviewed & negative as marked: Yes - Review of Systems Constitutional: Normal Eyes: Normal ENT: Normal Respiratory: Normal Cardiovascular: Normal Gastrointestinal: Abdominal Pain, Nausea, Vomiting. absent: Constipation, Diarrhea Genitourinary Male: Normal. absent: Dysuria, Hematuria Musculoskeletal: Normal Skin: Normal Neurological: Normal Endocrine: Normal Hemo/Lymphatic: Normal Physical Exam Vital Signs Reviewed: Yes Vital Signs Temp Pulse Resp BP Pulse Ox 08/27/17 05:11 97.7 F 65 18 118/66 96 08/27/17 03:44 98.8 F 93 H 18 132/92 H 96 Temperature: Afebrile Blood Pressure: Normal Pulse: Regular Respiratory Rate: Normal Appearance: Positive for: Uncomfortable Pain Distress: Moderate Mental Status: Positive for: Alert and Oriented X 3 - Systems Exam Head: Present: Atraumatic, Normocephalic Extroacular Muscles: Present: EOMI Mouth: Present: Moist Mucous Membranes Neck: Present: Normal Range of Motion Respiratory/Chest: Present: Clear to Auscultation. No: Respiratory Distress, Accessory Muscle Use, Wheezes, Rales, Rhonchi Cardiovascular: Present: Regular Rate and Rhythm, Normal S1, S2. No: Murmurs, Rub, Gallop Abdomen: Present: Tenderness, Hernias (right inguinal). No: Distention, Peritoneal Signs, Rebound, Guarding Upper Extremity: Present: Normal Inspection Lower Extremity: Present: Normal Inspection Neurological: Present: GCS=15 Skin: Present: Warm, Dry, Normal Color Psychiatric: Present: Alert, Oriented x 3 Medical Decision Making ED Course and Treatment: 08/27/17 04:07 Assessment: 37 yo M presents to ED with worsening right inguinal pain and vomiting over last 48 hrs. Plan: - Labs 08/27/17 04:14 Spoke with rn surgical pcu, she will come and evaluate patient. 08/27/17 04:50 resident care spec evaluated patient. Requesting CT abdomen/pelvis with PO contrast, lipase, UA, and influenza. 08/27/17 06:41 Patient endorsed over to Dr. Alonzo. - Lab Interpretations Lab Results: 08/27/17 04:17 08/27/17 04:17 Lab Results 08/27/17 04:52: Urine Color Yellow, Urine Appearance Clear, Urine pH 6.0, Ur Specific [place] 1.025, Urine Protein Negative, Urine Glucose (UA) Negative, Urine Ketones Negative, Urine Blood Negative, Urine Nitrate Negative, Urine Bilirubin Negative, Urine Urobilinogen 0.2, Ur Leukocyte Esterase Negative 08/27/17 04:51: Influenza Typ A,B (EIA) Negative for flu a/b 08/27/17 04:17: Lipase 72 08/27/17 04:17: PT 11.8, INR 1.03, APTT 22.2 L 08/27/17 04:17: Sodium 139, Potassium 4.3, Chloride 101, Carbon Dioxide 29, Anion Gap 14, BUN 23 H, Creatinine 1.0, Est GFR ( Amer) > 60, Est GFR ( Non-Af Amer) > 60, Random Glucose 98, Calcium 9.0, Magnesium 2.1, Total Bilirubin 0.5, AST 31, ALT 37, Alkaline Phosphatase 53, Total Protein 7.4, Albumin 3.9, Globulin 3.5, Albumin/Globulin Ratio 1.1 08/27/17 04:17: WBC 3.6 L, RBC 5.16, Hgb 12.2 L, Hct 39.2 L, MCV 76.0 L, MCH 23.6 L, MCHC 31.1, RDW 15.4 H, Plt Count 176, MPV 9.5, Gran % 63.0, Lymph % ( Auto) 28.1, [place] % (Auto) 7.2 H, Eos % (Auto) 1.4 L, Baso % (Auto) 0.3, Gran # 2.29, Lymph # (Auto) 1.0 L, [place] # (Auto) 0.3, Eos # (Auto) 0.1, Baso # (Auto) 0.01 - RAD Interpretation Radiology Orders: 08/27/17 04:47 ABD & PELVIS PO CONTRAST ONLY [CT] Stat Disposition/Present on Arrival - Present on Arrival Any Indicators Present on Arrival: No History of DVT/PE: No History of Uncontrolled Diabetes: No Urinary Catheter: No History of Decub. Ulcer: No History Surgical Site Infection Following: None - Disposition Have Diagnosis and Disposition been Completed?: No Diagnosis: Inguinal hernia Disposition Time: 07:04 Condition: STABLE Forms: [employer] ([place])
[2017-08-27 04:51] LABS: BASO # 0.01 K/mm3 (0.0-2.0); BASO % 0.3 % (0.0-3.0); EOS # 0.1 (0.0-0.7); EOS % 1.4 % (1.5-5.0); GRAN # 2.29 (1.4-6.5); HEMOGLOBIN 12.2 g/dL (14.0-18.0); LYMPH % 28.1 % (22.0-35.0); MEAN CORPUSCULAR HEMOGLOBIN 23.6 pg (25.0-35.0); MEAN CORPUSCULAR HGB CONC 31.1 g/dl (31.0-37.0); MEAN PLATELET VOLUME 9.5 fl (7.0-11.0); MONO # 0.3 (0.1-0.6); MONO % 7.2 % (1.0-6.0); RBC 5.16 10^6/uL (3.5-6.1); RED CELL DISTRIBUTION WIDTH 15.4 % (11.5-14.5); WHITE BLOOD COUNT 3.6 10^3/ul (4.5-11.0)
[2017-08-27] MEDS ORDERED: Iohexol 240 (50 ml) ONE (05:01)
[2017-08-27 05:04] LABS: INR 1.03 (0.93-1.08); PARTIAL THROMBOPLASTIN TIME 22.2 Seconds (25.1-36.5); PROTHROMBIN TIME 11.8 SECONDS (9.4-12.5)
[2017-08-27 05:06] LABS: ALB/GLOB RATIO 1.1 (1.1-1.8); ALBUMIN 3.9 g/dL (3.0-4.8); ALT/SGPT 37 U/L (7-56); AST/SGOT 31 U/L (17-59); BLOOD UREA NITROGEN 23 mg/dL (7-21); GFR AFRICAN-AMERICAN > 60; GFR NON-AFRICAN AMERICAN > 60; MAGNESIUM 2.1 mg/dL (1.7-2.2)
--- NOTE | 2017-08-27 05:13 | CP.PCM.CON ---
History of Present Illness - History of Present Illness History of Present Illness: 37M with PMH of Hepatitis C, failure of one kidney, cocaine and heroin abuse ( former), and a chronic reducible right inguinal hernia for 6 months presented to the ED for increased inguinal and RLQ pain, difficulty reducing the hernia, and epigastric pain associated with nausea and vomiting for 3 days. Patient states that it is usually easy to reduce the hernia, but recently it has been taking a long time to reduce and feels like it is getting caught on something during the process. Patient complains of worsening pain in the groin and RLQ and nausea and vomiting of non-bilious, non-bloody vomit. Patient cannot identify and inciting incident or association. 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 Patient states he saw his PMD , Dr. Johnson, for the hernia previously and was advised to come ot the hospital if it needed to be repaired. Reports acolic stools and chronic constipation but denies fevers, chills, diarrhea, dysuria, melena, hematochezia, testicular pain or swelling, or any other symptoms. Review of Systems - Review of Systems All systems: reviewed and no additional remarkable complaints except (as per HPI ) Past Patient History - Infectious Disease Hx of Infectious Diseases: None - Past Social History Smoking Status: Heavy Smoker > 10 Cigarettes Daily Alcohol: Other (former occasional drinking) Drugs: Cannabis, Other (former: cocaine, heroin (quit 2016)) Home Situation {Lives}: With Family - CARDIAC Hx Cardiac Disorders: No - PULMONARY Hx Respiratory Disorders: No - NEUROLOGICAL Hx Neurological Disorder: No - HEENT Hx HEENT Problems: No - RENAL Other/Comment: 1 FUNCTIONING KIDNEY per patient. R side - ENDOCRINE/METABOLIC Hx Endocrine Disorders: No - HEMATOLOGICAL/ONCOLOGICAL Hx Hepatitis C: Yes - INTEGUMENTARY Hx Dermatological Problems: No - MUSCULOSKELETAL/RHEUMATOLOGICAL Hx Musculoskeletal Disorders: No Hx Falls: No - GASTROINTESTINAL Hx Gastrointestinal Disorders: No - GENITOURINARY/GYNECOLOGICAL Hx Genitourinary Disorders: No - PSYCHIATRIC Hx Psychophysiologic Disorder: No Hx Substance Use: No (coccaine, heroine) Other/Comment: substance abuse = heroine, coccaine - SURGICAL HISTORY Hx Tonsillectomy: Yes - ANESTHESIA Hx Anesthesia: No Hx Anesthesia Reactions: No Hx Malignant Hyperthermia: No Meds Allergies/Adverse Reactions: Allergies Allergy/AdvReac Type Severity Reaction Status Date / Time iodine Allergy RASH Verified 08/27/17 03:48 shellfish derived Allergy RASH Verified 08/27/17 03:48 ct scan dye Allergy RASH Uncoded 08/27/17 03:49 Physical Exam - Constitutional Appears: Well, Non-toxic, No Acute Distress - Head Exam Head Exam: ATRAUMATIC, NORMOCEPHALIC - Eye Exam Eye Exam: Normal appearance. absent: Conjunctival injection, Scleral icterus - ENT Exam ENT Exam: Mucous Membranes Moist, Normal Oropharynx - Respiratory Exam Respiratory Exam: NORMAL BREATHING PATTERN. absent: Accessory Muscle Use, Respiratory Distress - Cardiovascular Exam Cardiovascular Exam: RRR - GI/Abdominal Exam GI & Abdominal Exam: Guarding (voluntary gaurding epigastrium), Soft, Tenderness (epigastrium and RLQ to deep palpation). absent: Distended, Rebound - Exam Exam: absent: Scrotal Swelling Additional comments: right inguinal moderate tenderness to palpation with hernia not containing bowel. No overlying erythema - Extremities Exam Extremities exam: Positive for: pedal pulses present. Negative for: calf tenderness, pedal edema - Neurological Exam Neurological exam: Alert, Oriented x3 - Psychiatric Exam Psychiatric exam: Normal Affect, Normal Mood - Skin Skin Exam: Dry, Intact, Normal Color, Warm Results - Vital Signs Recent Vital Signs: Last Vital Signs Temp 98.8 F 08/27/17 03:44 Pulse 93 H 08/27/17 03:44 Resp 18 08/27/17 03:44 BP 132/92 H 08/27/17 03:44 Pulse Ox 96 08/27/17 03:44 - Labs Result Diagrams: 08/27/17 04:17 08/27/17 04:17 Labs: Laboratory Results - last 24 hr 08/27/17 08/27/17 04:17 04:17 WBC 3.6 L RBC 5.16 Hgb 12.2 L Hct 39.2 L MCV 76.0 L MCH 23.6 L MCHC 31.1 RDW 15.4 H Plt Count 176 MPV 9.5 Gran % 63.0 Lymph % (Auto) 28.1 [place] % (Auto) 7.2 H Eos % (Auto) 1.4 L Baso % (Auto) 0.3 Gran # 2.29 Lymph # (Auto) 1.0 L [place] # (Auto) 0.3 Eos # (Auto) 0.1 Baso # (Auto) 0.01 PT 11.8 INR 1.03 APTT 22.2 L Assessment & Plan - Assessment and Plan (Free Text) Assessment: 37M with reducible right inguinal hernia and epigastric tenderness and fullness- -gastritis vs pancreatitis vs gastroparesis Plan: CT with PO contrast to r/o appendicits and evaluate hernia UA for possible UTI Rapid flu test CBC, CMP, Lipase to R/O pancreatitis for cause of epigastric abdominal pain Further planning pending CT results--if no sign of incarceration/strangulation, appendicitis, or any other critical findings, may consider discharging with follow in Dr. Weiner's office as an outpatient for repair. Awaiting Dr. Weiner's recommendations Alisha Arnold, PGY2
[2017-08-27 05:27] LABS: URINE BILIRUBIN NEGATIVE (NEGATIVE); URINE BLOOD NEGATIVE (NEGATIVE); URINE GLUCOSE (UA) NEGATIVE (NEGATIVE); URINE LEUKOCYTE ESTERASE NEGATIVE Leu/uL (NEGATIVE); URINE NITRATE NEGATIVE (NEGATIVE); URINE PROTEIN NEGATIVE mg/dL (<30 mg/dL); URINE UROBILINOGEN 0.2 E.U./dL (<1 E.U./dL)
[2017-08-27 05:31] LABS: URINE APPEARANCE CLEAR (CLEAR); URINE COLOR YELLOW (YELLOW)
--- NOTE | 2017-08-27 07:19 | ED PDOC ---
Physical Exam Vital Signs Temp Pulse Resp BP Pulse Ox 08/27/17 11:00 63 17 109/72 97 08/27/17 09:07 59 L 17 110/62 99 08/27/17 07:45 97.5 F L 58 L 20 107/59 L 98 08/27/17 05:11 97.7 F 65 18 118/66 96 08/27/17 03:44 98.8 F 93 H 18 132/92 H 96 Medical Decision Making ED Course and Treatment: 08/27/17 07:00 Case signed out to me by Dr. Doty. Patient is a 37 year old male complaining of RLQ associated with nausea and vomiting. Currently pending CT PO contrast . Lab results were normal. 08/27/17 08:00 CT abdomen: Creator : ELIJAH CUNNINGHAM FINDINGS: Lower thorax: Small hiatal hernia and distal esophageal wall thickening, unchanged. ABDOMEN: Liver: Unremarkable. Gallbladder and bile ducts: Unremarkable. No calcified stones. No ductal dilation. Pancreas: Unremarkable. No ductal dilation. Spleen: Splenomegaly. Adrenals: Unremarkable. No mass. Kidneys and ureters: Markedly atrophic left kidney with dystrophic calcifications. Right kidney measures up to 13.5 cm in length. No right-sided calculus or hydronephrosis. Stomach and bowel: Unremarkable. No dilatation of small or large bowel. No mucosal thickening. Appendix: Normal. PELVIS: Bladder: Unremarkable. No stones. Reproductive: Unremarkable as visualized. ABDOMEN and PELVIS: Intraperitoneal space: Unremarkable. No free air. No significant fluid collection. Bones/joints: No acute fracture. Soft tissues: Small fat containing right inguinal hernia. Mild fatty induration without change. Beyond the fat is well defined low attenuation ovoid structure in the right inguinal canal, measures 3.4 x 2.8 x 3.9 cm, unchanged. Vasculature: Unremarkable. No abdominal aortic aneurysm. Lymph nodes: No enlarged lymph nodes. IMPRESSION: 1. No acute inflammation or bowel obstruction. Constipation. 2. Splenomegaly, gastric and splenic varices. Clinical correlation for portal venous hypertension. 3. Redemonstration of small fat containing right inguinal hernia with mild induration with fluid/low attenuation focus. Defined and ovoid configuration of the low attenuation component, correlating with physical examination for possible undescended or mobile testis. 08/27/17 13:30 Reevaluation: On reevaluation the patient feels better and is in no acute distress. I have discussed the results and plan with the patient, who expresses understanding. Patient given the opportunity to ask question, all questions were answered and there is agreement with the plan to discharge the patient home. Patient is stable for discharge. Patient was instructed to follow up with physician/clinic in 1-2 days or return if symptoms persist/worsen or new concerning symptoms arise. 08/27/17 13:47 melody canales bedside cleared for dc. 08/27/17 13:49 - Lab Interpretations Lab Results: 08/27/17 04:17 08/27/17 04:17 Lab Results 08/27/17 04:52: Urine Color Yellow, Urine Appearance Clear, Urine pH 6.0, Ur Specific [place] 1.025, Urine Protein Negative, Urine Glucose (UA) Negative, Urine Ketones Negative, Urine Blood Negative, Urine Nitrate Negative, Urine Bilirubin Negative, Urine Urobilinogen 0.2, Ur Leukocyte Esterase Negative 08/27/17 04:51: Influenza Typ A,B (EIA) Negative for flu a/b 08/27/17 04:17: Lipase 72 08/27/17 04:17: PT 11.8, INR 1.03, APTT 22.2 L 08/27/17 04:17: Sodium 139, Potassium 4.3, Chloride 101, Carbon Dioxide 29, Anion Gap 14, BUN 23 H, Creatinine 1.0, Est GFR ( Amer) > 60, Est GFR ( Non-Af Amer) > 60, Random Glucose 98, Calcium 9.0, Magnesium 2.1, Total Bilirubin 0.5, AST 31, ALT 37, Alkaline Phosphatase 53, Total Protein 7.4, Albumin 3.9, Globulin 3.5, Albumin/Globulin Ratio 1.1 08/27/17 04:17: WBC 3.6 L, RBC 5.16, Hgb 12.2 L, Hct 39.2 L, MCV 76.0 L, MCH 23.6 L, MCHC 31.1, RDW 15.4 H, Plt Count 176, MPV 9.5, Gran % 63.0, Lymph % ( Auto) 28.1, [place] % (Auto) 7.2 H, Eos % (Auto) 1.4 L, Baso % (Auto) 0.3, Gran # 2.29, Lymph # (Auto) 1.0 L, [place] # (Auto) 0.3, Eos # (Auto) 0.1, Baso # (Auto) 0.01 - RAD Interpretation Radiology Orders: 08/27/17 04:47 ABD & PELVIS PO CONTRAST ONLY [CT] Stat Railroad Carman: Radiologist - Scribe Statement The provider has reviewed the documentation as recorded by the Scribe Brenda Jagdish Provider Scribe Attestation: All medical record entries made by the Scribe were at my direction and personally dictated by me. I have reviewed the chart and agree that the record accurately reflects my personal performance of the history, physical exam, medical decision making, and the department course for this patient. I have also personally directed, reviewed, and agree with the discharge instructions and disposition. Disposition/Present on Arrival - Present on Arrival Any Indicators Present on Arrival: No History of DVT/PE: No History of Uncontrolled Diabetes: No Urinary Catheter: No History of Decub. Ulcer: No History Surgical Site Infection Following: None - Disposition Have Diagnosis and Disposition been Completed?: Yes Diagnosis: Inguinal hernia Disposition: HOME/ ROUTINE Disposition Time: 01:00 Patient Problems: Current Active Problems Problem Status Onset Inguinal hernia Acute Condition: STABLE Discharge Instructions (ExitCare): Inguinal and Femoral (Groin) Hernias Additional Instructions: follow up with specialist. return to er with worsening symptoms or concerns. Referrals: Franklyn Olguin MD [Staff Provider] - Follow up with primary Forms: [employer] (Finnish)
--- NOTE | 2017-08-27 07:59 | CT ---
EXAM: CT Abdomen and Pelvis Without Intravenous Contrast EXAM DATE/TIME: 08/27/2017 4:47 AM CLINICAL HISTORY: 37 years old, male; Signs and symptoms; Abdominal tenderness; Additional info: Right inguinal hernia TECHNIQUE: Axial computed tomography images of the abdomen and pelvis without intravenous contrast. All CT scans at this facility use one or more dose reduction techniques, viz.: automated exposure control; ma/kV adjustment per patient size (including targeted exams where dose is matched to indication; i.e. head); or iterative reconstruction technique. Coronal and sagittal reformatted images were created and reviewed. COMPARISON: CT - ABD PELVIS PO CONTRAST ONLY 2017-05-09 04:34 FINDINGS: Lower thorax: Small hiatal hernia and distal esophageal wall thickening, unchanged. ABDOMEN: Liver: Unremarkable. Gallbladder and bile ducts: Unremarkable. No calcified stones. No ductal dilation. Pancreas: Unremarkable. No ductal dilation. Spleen: Splenomegaly. Adrenals: Unremarkable. No mass. Kidneys and ureters: Markedly atrophic left kidney with dystrophic calcifications. Right kidney measures up to 13.5 cm in length. No right-sided calculus or hydronephrosis. Stomach and bowel: Unremarkable. No dilatation of small or large bowel. No mucosal thickening. Appendix: Normal. PELVIS: Bladder: Unremarkable. No stones. Reproductive: Unremarkable as visualized. ABDOMEN and PELVIS: Intraperitoneal space: Unremarkable. No free air. No significant fluid collection. Bones/joints: No acute fracture. Soft tissues: Small fat containing right inguinal hernia. Mild fatty induration without change. Beyond the fat is well defined low attenuation ovoid structure in the right inguinal canal, measures 3.4 x 2.8 x 3.9 cm, unchanged. Vasculature: Unremarkable. No abdominal aortic aneurysm. Lymph nodes: No enlarged lymph nodes. IMPRESSION: 1. No acute inflammation or bowel obstruction. Constipation. 2. Splenomegaly, gastric and splenic varices. Clinical correlation for portal venous hypertension. 3. Redemonstration of small fat containing right inguinal hernia with mild induration with fluid/low attenuation focus. Defined and ovoid configuration of the low attenuation component, correlating with physical examination for possible undescended or mobile testis.
[2017-08-27 08:00] VITALS: TEMP 97.5
[2017-08-27 14:04] VITALS: BP 111/69; PULSE 65; RESP 18; O2SAT 98
== END 2017-08-27 13:13 | disposition home or self-care (01) ==
LOC: ED 03:31
DX: K40.90 Unilateral inguinal hernia, without obstruction or gangrene, not specified as recurrent (principal); F17.210 Nicotine dependence, cigarettes, uncomplicated; B19.20 Unspecified viral hepatitis C without hepatic coma
CPT/HCPCS: 74176; 80053; 81003; 83690; 83735; 85025; 85610; 85730; 87804; 99285; Q9966

== ENCOUNTER 2017-09-06 23:01 | Observation (INO) | payer OTHER ==
[2017-09-06 23:03] VITALS: BMI 31.8
--- NOTE | 2017-09-06 23:07 | ED PDOC ---
Arrival/HPI - General Time Seen by Provider: 09/06/17 23:03 Historian: Patient, EMS - History of Present Illness Narrative History of Present Illness (Text): 09/06/17 23:06 Angel Gutierrez is a 37 year old male, whose past medical history include atrophic kidney, hepatitis C, and substance abuse, who presents to the Emergency department brought in by EMS status post overdose tonight. EMS report patient's found him prior to arrival after using IV heroin. Patient denies any drug abuse tonight, states he last injected yesterday. Patient noted to be awake and slightly drowsy on arrival to Emergency department. Patient denies any chest pain, shortness of breath, vomiting, suicidal ideation, or any other complaints. PMD: Dr. Cosmo Johnson Symptom Onset: Gradual Symptom Course: Unchanged Activities at Onset: Light Context: Home Past Medical History - Provider Review Nursing Documentation Reviewed: Yes - Infectious Disease Hx of Infectious Diseases: None - Cardiac Hx Cardiac Disorders: No - Pulmonary Hx Respiratory Disorders: No - Neurological Hx Neurological Disorder: No - HEENT Hx HEENT Disorder: No - Renal Other/Comment: 1 FUNCTIONING KIDNEY per patient. 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, coccaine - Surgical History Hx Tonsillectomy: Yes - Anesthesia Hx Anesthesia: No Hx Anesthesia Reactions: No Hx Malignant Hyperthermia: No - Suicidal Assessment Feels Threatened In Home Enviroment: No Family/Social History - Physician Review Nursing Documentation Reviewed: Yes Family/Social History: Unknown Family HX Smoking Status: Heavy Smoker > 10 Cigarettes Daily Hx Alcohol Use: Yes Hx Substance Use: No (coccaine, heroine) Hx Substance Use Treatment: No Allergies/Home Meds Allergies/Adverse Reactions: Allergies iodine Allergy (Verified 08/27/17 03:48) RASH shellfish derived Allergy (Verified 08/27/17 03:48) RASH ct scan dye Allergy (Uncoded 08/27/17 03:49) RASH hives Home Medications: Home Meds Medication Instructions Recorded Confirmed No Known Home Med 11/02/17 02/20/18 Review of Systems - Patients Enrolled in [employer] [X]: A conversation was conducted with the primary medical doctor. - Physician Review All systems were reviewed & negative as marked: Yes - Review of Systems Constitutional: Normal. absent: Fevers Eyes: Normal ENT: Normal Respiratory: Normal. absent: SOB, Cough Cardiovascular: Normal. absent: Chest Pain Genitourinary Male: Normal. absent: Dysuria, Frequency, Hematuria, Urinary Output Changes Musculoskeletal: Normal. absent: Back Pain, Neck Pain Skin: Normal. absent: Rash Neurological: Normal. absent: Headache, Dizziness Endocrine: Normal Hemo/Lymphatic: Normal Psychiatric: Other (+drug abuse) Physical Exam Vital Signs Reviewed: Yes Vital Signs Pulse Resp BP Pulse Ox 09/07/17 00:59 68 18 112/79 98 09/06/17 23:03 77 16 99 Temperature: Afebrile Blood Pressure: Normal Pulse: Regular Respiratory Rate: Normal Appearance: Positive for: Well-Appearing Pain Distress: None Mental Status: Positive for: other (Awake, slightly drowsy) - Systems Exam Head: Present: Atraumatic, Normocephalic Pupils: Present: Other (Myotic but reactive bilaterally) Extroacular Muscles: Present: EOMI Conjunctiva: Present: Normal Mouth: Present: Moist Mucous Membranes Neck: Present: Normal Range of Motion. No: Meningeal Signs, MIDLINE TENDERNESS , Paraspinal Tenderness Respiratory/Chest: Present: Clear to Auscultation, Good Air Exchange. No: Respiratory Distress, Accessory Muscle Use Cardiovascular: Present: Regular Rate and Rhythm, Normal S1, S2. No: Murmurs Abdomen: Present: Normal Bowel Sounds. No: Tenderness, Distention, Peritoneal Signs Back: Present: Normal Inspection Upper Extremity: Present: Normal Inspection. No: Cyanosis, Edema Lower Extremity: Present: Normal Inspection. No: Edema Neurological: Present: GCS=15, CN II-XII Intact, Speech Normal Skin: Present: Warm, Dry, Normal Color. No: Rashes Psychiatric: Present: Other (Awake, slightly drowsy) Medical Decision Making ED Course and Treatment: 09/06/17 23:07 Impression: 37 year old male presents s/p overdose tonight. Plan: -- EKG -- Chest X-ray -- Labs, alcohol level, cardiac enzymes -- Urinalysis, urine drug screen -- IV fluids -- Narcan -- Reassess and disposition Prior Visits: Notes and results from previous visits were reviewed. On 08/27/2017, pt was seen in the Emergency department for right inguinal hernia pain. Pt was d/c home. Progress Notes: Reviewed EKG, NSR at 73 bpm. Septal infarct. Non-specific ST/T wave changes. 09/07/17 00:08 Pt given Narcan in ER. Pt became completely awake and alert following Narcan administration. Pt refused to remain in ER, states he wanted to leave. Discussed case with pt's PMD, Dr. Johnson, who requested to speak with to pt. Pt spoke to Dr. Johnson on the phone for a while and was convinced to remain for detoc. Pt in agreement with plan at his point. Pt remains awake, alert, and fully coherent. Pt will be admitted to Telemetry monitored bed. 09/07/17 01:36 Pt appeared to be more drowsy again. Narcan ordered. Case was discussed with Dr. Gonzales, lcpc, who agrees to evalute pt. Will re-evaluate, pending ABG. 09/07/17 02:39 Pt cleared by lcpc for Telemetry admission. - Lab Interpretations Lab Results: 09/06/17 23:25 09/06/17 23:25 Lab Results 09/06/17 23:25: Salicylates < 1 L, Acetaminophen < 10.0 L 09/06/17 23:25: WBC 4.0 L, RBC 5.26, Hgb 12.6 L, Hct 40.3 L, MCV 76.6 L, MCH 24.0 L, MCHC 31.3, RDW 15.4 H, Plt Count 97 L, MPV 9.2 09/06/17 23:25: Alcohol, Quantitative < 10 09/06/17 23:25: Sodium 142, Potassium 4.3, Chloride 105, Carbon Dioxide 27, Anion Gap 14, BUN 21, Creatinine 1.0, Est GFR ( Amer) > 60, Est GFR (Non- Af Amer) > 60, Random Glucose 87, Calcium 9.1, Total Bilirubin 0.3, AST 34, ALT 37, Alkaline Phosphatase 62, Lactate Dehydrogenase 514, Total Creatine Kinase 447 H, CK-MB (CK-2) 5.0 H, CK-MB (CK-2) % 1.1 L, Troponin I < 0.01, Total Protein 7.3, Albumin 3.8, Globulin 3.5, Albumin/Globulin Ratio 1.1 09/06/17 23:25: APTT 28.9 09/06/17 23:25: ESR 15 I have reviewed the lab results: Yes - EKG Interpretation Interpreted by ED Physician: Yes Type: 12 lead EKG - Medication Orders Current Medication Orders: Sodium Chloride (Sodium Chloride 0.9%) 1,000 mls @ 100 mls/hr IV .Q10H TREY Dextrose/Sodium Chloride (Dextrose 5%/0.45% Ns 1000 Ml) 1,000 mls @ 70 mls/hr IV .[id number] TREY Last Admin: 09/07/17 00:30 Dose: 70 mls/hr eMAR Start Stop Document 09/07/17 00:30 AD (Rec: 09/07/17 00:48 AD [id number]) Intravenous Solution Start Date 09/07/17 Start Time 00:30 Pantoprazole Sodium (Protonix Inj) 40 mg IVP DAILY TREY Discontinued Medications Naloxone HCl (Narcan) 0.8 mg IV STAT STA Stop: 09/06/17 23:22 Last Admin: 09/06/17 23:37 Dose: 0.8 mg eMAR Start Stop Document 09/06/17 23:37 AD (Rec: 09/07/17 00:46 AD [id number]) Intravenous Solution Start Date 09/06/17 Start Time 23:37 Naloxone HCl (Narcan) 1.2 mg IV STAT STA Stop: 09/07/17 01:10 Last Admin: 09/07/17 01:20 Dose: 1.2 mg eMAR Start Stop Document 09/07/17 01:20 AD (Rec: 09/07/17 01:20 AD [id number]) Intravenous Solution Start Date 09/07/17 Start Time 01:20 Ondansetron HCl (Zofran Inj) 8 mg IVP ONCE ONE Stop: 09/07/17 01:29 Last Admin: 09/07/17 01:30 Dose: 8 mg IVP Administration Document 09/07/17 01:30 AD (Rec: 09/07/17 01:47 AD [id number]) Charges for Administration # of IVP Administrations 1 - Scribe Statement The provider has reviewed the documentation as recorded by the Scribtahmina Masters All medical record entries made by the Scribe were at my direction and personally dictated by me. I have reviewed the chart and agree that the record accurately reflects my personal performance of the history, physical exam, medical decision making, and the department course for this patient. I have also personally directed, reviewed, and agree with the discharge instructions and disposition. Disposition/Present on Arrival - Present on Arrival Any Indicators Present on Arrival: No History of DVT/PE: No History of Uncontrolled Diabetes: No Urinary Catheter: No History of Decub. Ulcer: No History Surgical Site Infection Following: None - Disposition Have Diagnosis and Disposition been Completed?: Yes Diagnosis: Drug abuse, Heroin use Disposition: HOSPITALIZED Disposition Time: 00:40 Patient Plan: Observation Patient Problems: Current Active Problems Problem Status Onset Drug abuse Acute Heroin use Acute Condition: STABLE
[2017-09-06] MEDS ORDERED: Naloxone 0.4 mg/ml Inj (Adult) IV STA (23:21)
[2017-09-06] MEDS ORDERED: Naloxone 0.4 mg/ml Inj (Adult) ONE (23:21)
[2017-09-06] MEDS ORDERED: Sodium Chloride 0.9% 1,000 ML IV SCH (23:30)
[2017-09-06 23:50] LABS: HEMOGLOBIN 12.6 g/dL (14.0-18.0); MEAN CELL VOLUME 76.6 fl (80.0-105.0); MEAN CORPUSCULAR HGB CONC 31.3 g/dl (31.0-37.0); MEAN PLATELET VOLUME 9.2 fl (7.0-11.0); RBC 5.26 10^6/uL (3.5-6.1); RED CELL DISTRIBUTION WIDTH 15.4 % (11.5-14.5)
[2017-09-06 23:57] LABS: ACETAMINOPHEN < 10.0 ug/ml (10.0-20.0); SALICYLATE < 1 mg/dL (2.0-20.0)
[2017-09-07] MEDS: Dextrose 5%/0.45% NS 1,000 ML IV SCH ×2 (00:30→14:58)
[2017-09-07 00:50] LABS: ALB/GLOB RATIO 1.1 (1.1-1.8); ALBUMIN 3.8 g/dL (3.0-4.8); ALT/SGPT 37 U/L (7-56); AST/SGOT 34 U/L (17-59); BLOOD UREA NITROGEN 21 mg/dL (7-21); CALCIUM 9.1 mg/dL (8.4-10.5); GFR AFRICAN-AMERICAN > 60; GFR NON-AFRICAN AMERICAN > 60
[2017-09-07 01:01] LABS: TROPONIN I < 0.01 ng/mL
[2017-09-07] MEDS ORDERED: Naloxone HCl 2mg/2ml syr IVP STA (01:01)
[2017-09-07 01:09] LABS: CK MB% 1.1 % (2.5-3.0)
[2017-09-07] MEDS ORDERED: Naloxone 0.4 mg/ml Inj (Adult) IV STA (01:09)
[2017-09-07 02:02] LABS: ARTERIAL BLOOD GAS HCO3 28.5 mmol/L (21-28); ARTERIAL BLOOD GAS HEMOGLOBIN 12.4 g/dL (11.7-17.4); ARTERIAL BLOOD GAS O2 CAPACITY 16.7 mL/dl (16-24); ARTERIAL BLOOD GAS O2 CONTENT 15.9 ML/dl (15-23); ARTERIAL BLOOD GAS O2 SAT 95.2 % (95-98); ARTERIAL BLOOD GAS PCO2 46 mm/Hg (35-45); ARTERIAL BLOOD GAS TCO2 29.9 mmol.L (22-28)
[2017-09-07 02:29] LABS: URINE BILIRUBIN NEGATIVE (NEGATIVE); URINE BLOOD NEGATIVE (NEGATIVE); URINE GLUCOSE (UA) NEGATIVE (NEGATIVE); URINE LEUKOCYTE ESTERASE NEGATIVE Leu/uL (NEGATIVE); URINE NITRATE NEGATIVE (NEGATIVE); URINE PROTEIN NEGATIVE mg/dL (<30 mg/dL); URINE UROBILINOGEN 0.2 E.U./dL (<1 E.U./dL)
[2017-09-07 02:33] LABS: URINE APPEARANCE CLEAR (CLEAR); URINE COLOR YELLOW (YELLOW)
--- NOTE | 2017-09-07 02:42 | CP.PCM.CON ---
<Rody Wolfe - Last Filed: 09/07/17 02:27> History of Present Illness - History of Present Illness History of Present Illness: ICU Consult - Dr. Gonzales CC: Heroin Abuse HPI: 37 M with a PMHx of known and untreated Hepatitis C, congenital atrophic kidney (Rt. functioning) , reducible rt inguinal hernia, and polysubstance IV abuse (cocaine/heroin) presented to [facility] [place] [facility] ED by ambulance with concerns of heroin abuse, as pt has fresh trackmarks on forearms. Narcan was not administered in the field. As per ED, pt received Narcan to which the patient responded, was awake, AAOx3, and admitted to using heroin recently. Pt was wishing to sign out AMA, however, after lengthy discussion with his PMD Dr. Johnson, he agreed to stay to be monitored. Pt was seen and examined at bedside. Pt is somnolent, yet arousable to verbal and tactile stimulus. Respirations are regular and unlabored. Pt denied any acute complaints at this time, however full HPI/ROS unobtainable due to pt's somnlence. PMHx: Known untreated Hep C, congenital atrophic kidney, reducible rt inguinal hernia, and polysubstance abuse PSHx: Tonsillectomy SHx: heavy smoker, +etoh, heroin and cocaine abuse FamilyHx: Father - Pancreatic [place] Meds: MAR Reviewed Allergies: Iodine, contrast dye, shellfish PMD: Dr. Johnson Review of Systems - Review of Systems Systems not reviewed;Unavailable: Intoxicated Past Patient History - Infectious Disease Hx of Infectious Diseases: None - Past Social History Smoking Status: Heavy Smoker > 10 Cigarettes Daily - CARDIAC Hx Cardiac Disorders: No - PULMONARY Hx Respiratory Disorders: No - NEUROLOGICAL Hx Neurological Disorder: No - HEENT Hx HEENT Problems: No - RENAL Other/Comment: 1 FUNCTIONING KIDNEY per patient. R side - ENDOCRINE/METABOLIC Hx Endocrine Disorders: No - HEMATOLOGICAL/ONCOLOGICAL Hx Hepatitis C: Yes - INTEGUMENTARY Hx Dermatological Problems: No - MUSCULOSKELETAL/RHEUMATOLOGICAL Hx Musculoskeletal Disorders: No Hx Falls: No - GASTROINTESTINAL Hx Gastrointestinal Disorders: No - GENITOURINARY/GYNECOLOGICAL Hx Genitourinary Disorders: No - PSYCHIATRIC Hx Psychophysiologic Disorder: No Hx Substance Use: No (coccaine, heroine) Other/Comment: substance abuse = heroine, coccaine - SURGICAL HISTORY Hx Tonsillectomy: Yes - ANESTHESIA Hx Anesthesia: No Hx Anesthesia Reactions: No Hx Malignant Hyperthermia: No Meds Allergies/Adverse Reactions: Allergies Allergy/AdvReac Type Severity Reaction Status Date / Time iodine Allergy RASH Verified 08/27/17 03:48 shellfish derived Allergy RASH Verified 08/27/17 03:48 ct scan dye Allergy RASH Uncoded 08/27/17 03:49 - Medications Medications: Current Medications Sodium Chloride (Sodium Chloride 0.9%) 1,000 mls @ 100 mls/hr IV .Q10H TREY Dextrose/Sodium Chloride (Dextrose 5%/0.45% Ns 1000 Ml) 1,000 mls @ 70 mls/hr IV .[id number] TREY Last Admin: 09/07/17 00:30 Dose: 70 mls/hr Pantoprazole Sodium (Protonix Inj) 40 mg IVP DAILY [facility] Physical Exam - Constitutional Appears: No Acute Distress - Head Exam Head Exam: ATRAUMATIC, NORMAL INSPECTION, NORMOCEPHALIC - Eye Exam Eye Exam: EOMI, Normal appearance, PERRL Pupil Exam: NORMAL ACCOMODATION, PERRL - ENT Exam ENT Exam: Mucous Membranes Moist, Normal Exam - Respiratory Exam Respiratory Exam: Clear to Auscultation Bilateral, NORMAL BREATHING PATTERN - Cardiovascular Exam Cardiovascular Exam: REGULAR RHYTHM, +S1, +S2 - GI/Abdominal Exam GI & Abdominal Exam: Normal Bowel Sounds, Soft. absent: Tenderness - Extremities Exam Additional comments: trackmarks on forearm - Neurological Exam Neurological exam: Alert, CN II-XII Intact, Oriented x3, Reflexes Normal - Skin Skin Exam: Dry, Intact, Normal Color, Warm Results - Vital Signs Recent Vital Signs: Last Vital Signs Temp Pulse 68 09/07/17 00:59 Resp 18 09/07/17 00:59 BP 112/79 09/07/17 00:59 Pulse Ox 98 09/07/17 00:59 - Labs Result Diagrams: 09/06/17 23:25 09/06/17 23:25 Labs: Laboratory Results - last 24 hr 09/07/17 01:55 pCO2 46 H pO2 60.0 L HCO3 28.5 H ABG pH 7.40 ABG Total CO2 29.9 H ABG O2 Saturation 95.2 ABG O2 Content 15.9 ABG Base Excess 3.1 H ABG Hemoglobin 12.4 ABG Carboxyhemoglobin 3.8 H POC ABG HHb (Measured) 4.6 ABG Methemoglobin 0.7 ABG O2 Capacity 16.7 Hgb O2 Saturation 90.9 L FiO2 21.0 Assessment & Plan - Assessment and Plan (Free Text) Assessment: 37 M with a PMHx of known and untreated Hepatitis C, congenital atrophic kidney (Rt. functioning) , reducible rt inguinal hernia, and polysubstance IV abuse ( cocaine/heroin) presented to [facility] [place] ED by ambulance with concerns of heroin abuse. ABG was reviewed, found to be mildly hypoxic likely secondary to aspiration of emesis in ED. Pt is protecting airway, is arousable to verbal and tactile stimulus. EKG demonstrated NSR. Vital signs are stable. Pt does not require ICU level of care. Recommend telemetry, neurochecks, [facility] to maintain 02 sat>90%. Zofran prn nausea. GI/DVT ppx. Seen, reviewed, and discussed with Dr. Gonzales <Gianluca Gonzales Q - Last Filed: 09/07/17 04:30> Meds - Medications Medications: Current Medications Dextrose/Sodium Chloride (Dextrose 5%/0.45% Ns 1000 Ml) 1,000 mls @ 70 mls/hr IV .[id number] [facility] Last Admin: 09/07/17 00:30 Dose: 70 mls/hr Naloxone HCl 2.4 mg/ Sodium (Chloride) 246 mls @ 61.5 mls/hr IV .Q4H ONE PRN Reason: 0.6 MG/HR Stop: 09/07/17 08:10 Pantoprazole Sodium (Protonix Inj) 40 mg IVP DAILY [facility] Results - Vital Signs Recent Vital Signs: Last Vital Signs Temp 98.9 F 09/07/17 00:59 Pulse 75 09/07/17 02:00 Resp 18 09/07/17 02:47 BP 150/93 H 09/07/17 02:47 Pulse Ox 95 09/07/17 02:47 - Labs Result Diagrams: 09/06/17 23:25 09/06/17 23:25 Labs: Laboratory Results - last 24 hr 09/07/17 09/07/17 09/07/17 01:55 02:14 02:14 pCO2 46 H pO2 60.0 L HCO3 28.5 H ABG pH 7.40 ABG Total CO2 29.9 H ABG O2 Saturation 95.2 ABG O2 Content 15.9 ABG Base Excess 3.1 H ABG Hemoglobin 12.4 ABG Carboxyhemoglobin 3.8 H POC ABG HHb (Measured) 4.6 ABG Methemoglobin 0.7 ABG O2 Capacity 16.7 Hgb O2 Saturation 90.9 L FiO2 21.0 Urine Color Yellow Urine Appearance Clear Urine pH 6.0 Ur Specific [place] 1.020 Urine Protein Negative Urine Glucose (UA) Negative Urine Ketones Negative Urine Blood Negative Urine Nitrate Negative Urine Bilirubin Negative Urine Urobilinogen 0.2 Ur Leukocyte Esterase Negative Urine Opiates Screen Positive H Urine Methadone Screen Negative Ur Barbiturates Screen Negative Ur Phencyclidine Scrn Negative Ur Amphetamines Screen Negative U Benzodiazepines Scrn Negative U Oth Cocaine Metabols Positive H U Cannabinoids Screen Positive H Attending/Attestation - Attestation I have personally seen and examined this patient.: Yes I have fully participated in the care of the patient.: Yes I have reviewed all pertinent clinical information: Yes Notes (Text): 09/07/17 04:16 I agree with the above mentioned note and exam by the resident with the addition /exception of the followin37 y/o male with PMHx ?Hepatitis, polysubstance abuse presented to the ED via EMS for polypharmacy and ?drug overdose. Patient seen earlier in the ED and appeared awake, slightly lethargic however responded appropriately to verbal stimulus. He was able to tell me he was in the hospital and was agitated asking to be left alone, not participating in the history portion of the exam. Patient did not require ICU level care given that he was alert, ABG done showing mild hypoxia without hypercapnic failure; hypoxia attributed to patient vomiting prior to the ABG. Patient was admitted to the telemetry floor and became more obtunded requiring an additional dose of narcan by the house physician. Patient transferred to the ICU to be placed on a narcan drip. Currently saturating 99% on 2L nasal cannula, appears to be withdrawing rather than being obtunded. Complaining of chills, visibly agitated but not yet combative and not participating in the exam. Current vital signs HR: 88 RR: 18 BP: 168/104 Sa02: 99% on 2L nasal cannula Will place the patient in ICU Narcan drip @ 0.5mg/hr Oxygen via nasal cannula supportive care Zofran prn N/V likely susceptible to opiod withdrawal symptoms Case discussed with the house doctor Dr. Ramos
[2017-09-07] MEDS ORDERED: Naloxone 0.4 mg/ml Inj (Adult) IVP STA ×2 (03:36→03:56)
[2017-09-07 03:39] LABS: BARBITURATES, UR NEGATIVE (NEGATIVE); BENZODIAZEPINES, UR NEGATIVE (NEGATIVE); OPIATES, UR POSITIVE (NEGATIVE); PHENCYCLIDINE, UR NEGATIVE (NEGATIVE)
[2017-09-07] MEDS ORDERED: Naloxone 2.4 MG in Sodium Chloride 0.9% 240 ML IV ONE ×2 (04:11→04:24)
--- NOTE | 2017-09-07 04:13 | CP.PCM.PN ---
Subjective - Date & Time of Evaluation Date of Evaluation: 09/07/17 Time of Evaluation: 04:02 - Subjective Subjective: called by nurse pt is not arouse able pt is admitted tonight from ER for drug overdose.was given narcain 2 mg iv in the er.pt is not responding to tactile stimuli pupils are [place] breathing is intermittently gasping . pulse ox is 77 bp hr is 30. pt was given nacain 0.4 mg x2 pt responded .more awake .pt is going to heart block between mobitz 1 and 2. Objective - Vital Signs/Intake and Output Vital Signs (last 24 hours): Temp Pulse Resp BP Pulse Ox 68 18 150/93 H 95 09/07/17 00:59 09/07/17 02:47 09/07/17 02:47 09/07/17 02:47 - Medications Medications: Current Medications Dextrose/Sodium Chloride (Dextrose 5%/0.45% Ns 1000 Ml) 1,000 mls @ 70 mls/hr IV .[id number] TREY Last Admin: 09/07/17 00:30 Dose: 70 mls/hr Naloxone HCl (Narcan) 0.4 mg IVP STAT STA Stop: 09/07/17 03:57 Pantoprazole Sodium (Protonix Inj) 40 mg IVP DAILY TREY - Labs Labs: APTT 28.9 Seconds (25.1-36.5) 09/06/17 23:25 - Constitutional Appears: Other - Head Exam Head Exam: NORMOCEPHALIC - Eye Exam Pupil Exam: Miosis - ENT Exam ENT Exam: Mucous Membranes Moist - Neck Exam Neck Exam: Normal Inspection - Respiratory Exam Respiratory Exam: Decreased Breath Sounds Additional comments: gasping intermittently . - Cardiovascular Exam Cardiovascular Exam: Bradycardia - GI/Abdominal Exam GI & Abdominal Exam: Soft - Rectal Exam Rectal Exam: Deferred - Extremities Exam Extremities Exam: Normal Inspection - Neurological Exam Neurological Exam: Altered - Skin Skin Exam: Dry, Warm Assessment and Plan - Assessment and Plan (Free Text) Assessment: respiratory failure secondry to drubg overdose. Plan: narcain .4 mg x2 stat given ,called dr cramer for icu transfer for narcain drip.
[2017-09-07 06:12] LABS: HEMOGLOBIN 11.8 g/dL (14.0-18.0); MEAN CELL VOLUME 76.4 fl (80.0-105.0); MEAN CORPUSCULAR HEMOGLOBIN 23.6 pg (25.0-35.0); MEAN CORPUSCULAR HGB CONC 30.9 g/dl (31.0-37.0); MEAN PLATELET VOLUME 9.2 fl (7.0-11.0); RED CELL DISTRIBUTION WIDTH 15.2 % (11.5-14.5); WHITE BLOOD COUNT 3.5 10^3/ul (4.5-11.0)
--- NOTE | 2017-09-07 08:09 | PN ---
DATE: CHARCOAL UNLOADER NOTE REQUESTING PHYSICIAN: Dr. Johnson. SUBJECTIVE: The patient is resting this morning and responds to the spoken word and is moving all extremities. Does not seem to be confused. The patient overnight had been given several doses of Narcan and noted he was admitted for polysubstance abuse. At this time, no fever or chills, no nausea or vomiting. No abdominal pain. No chest pain. No cough or congestion. No shortness of breath either. PHYSICAL EXAMINATION VITAL SIGNS: Temperature is 98.4, pulse is 74, respirations are 19 and blood pressure is 122/55. SKIN: Warm and dry. HEENT: Head atraumatic, normocephalic. Eyes, reactive to light. Ears, nose, and throat: Seem to be within normal limits. NECK: Supple. No JVD. No thyroid enlargement or lymph nodes. HEART: Has regular rate and rhythm. Normal S1, S2. LUNGS: Reveal good breath sounds bilaterally. ABDOMEN: Soft, nontender. Normal bowel sounds. No organomegaly noted. GENITALIA: Deferred. RECTAL: Deferred. MUSCULOSKELETAL: No joint deformities. EXTREMITIES: Reveal no edema. NEUROLOGIC: He is awake and alert and moving all extremities. LABORATORY DATA: Reveal a white count of 3.5, hemoglobin is 11.8, hematocrit 38.2 with platelets of 171,000. The patient's sodium is 142, potassium 4.3, chloride 105, CO2 of 27 with a BUN of 21, creatinine of 1.0 and a glucose of 87. IMPRESSION: As far as my impression, this patient presents with altered mental status secondary to polysubstance abuse and drug abuse. Has a history of hepatitis C and has a history of history of renal insufficiency. PLAN: As far as our plan, we will continue with IV fluids. The patient will be monitored closely and if needed, will be given doses of IV Narcan. We will continue with Protonix as well as Zofran and follow the patient closely and continue to treat aggressively along with the other consultants and the primary care doctor. Gianluca Montanez MD
--- NOTE | 2017-09-07 09:35 | CARD ---
APPROVED REPORT EKG Measurement Heart [id number] <Conclusion> Normal sinus rhythm with sinus arrhythmia Septal infarct, age undetermined Abnormal ECG
--- NOTE | 2017-09-07 12:51 | US ---
HISTORY: hepatitis c, pain COMPARISON: None. TECHNIQUE: Sonographic evaluation of the right upper quadrant of the abdomen. FINDINGS: LIVER: Measures 15.5 x 14.6 cm in length. Increased echogenicity of the liver parenchyma. No mass. No intrahepatic bile duct dilatation. GALLBLADDER: Unremarkable. No gallstones. COMMON BILE DUCT: Measures 7 mm. No stones. No dilatation. PANCREAS: Unremarkable as visualized. No mass. No ductal dilatation. RIGHT KIDNEY: Measures 11.17 x 6.31 x 6.75 cm in length. Normal echogenicity. No calculus, mass, or hydronephrosis. AORTA: No aneurysmal dilatation. IVC: Unremarkable. OTHER FINDINGS: None . IMPRESSION: Fatty infiltration of the liver. The study is otherwise unremarkable
--- NOTE | 2017-09-07 18:33 | CON ---
DATE: HISTORY OF PRESENT ILLNESS: The patient is a [id number] [place] born male with a history of opiate and cocaine dependency as well as history of depression, prior history of "couple suicide attempts," which occurred over a decade ago, no current outpatient psychiatric or substance abuse treatment or medication, who presents to the Emergency Department after being brought in by EMS after unintentional overdose on IV heroin. Patient required multiple rounds of Narcan in the hospital, in the ER as well as medical floor, ultimately resulting in his transfer to the ICU for stabilization. I reviewed recent notes and met with the patient at bedside and the patient currently is oriented to the month and the year and he is surprised by the circumstances of requiring multiple doses of Narcan due to overdose. Patient consistently denies that overdose was intentional and he does not know why the heroin that he took the day prior led to this effect as he has been getting it from the same dealer. Patient reports that he has been using 20 to 30 bags daily on average with cocaine. Does not use alcohol and felt that he was generally normal compared to his prior uses. He is not depressed, though he does have a history of depression remotely. He reports having a suicide attempt about over a decade ago by overdosing on cocaine. He does not feel hopeless. He is happy that he is alive, though he is surprised about the situation. He is coherent and consistent with his responses and appears affect is generally appropriate and reactive. Patient is tired and does indicate that he understands the severity of his use can lead to and he is superficially interested in medication such as naltrexone and outpatient options when he has more energy and he medically feels better. Again, patient is not suicidal, he is not depressed, he is not hallucinating, he denies any thoughts to harm others, and presentation appears to be much better than yesterday. Insight and judgment are improving. PSYCHIATRIC HISTORY: Patient denies any prior psychiatric hospitalizations. 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 This occurred a few years ago. Patient reports a couple of suicide attempts. This occurred remotely, less than 10 years ago, by overdose of cocaine. He denies any other medication trial. Denies any current psychiatric outpatient followup. SOCIAL HISTORY: Patient was born in [place]. He is not . Reports that he has a 3-year-old daughter, named Gemini. 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 Patient reports being addicted to opiates since 2000 and regarding current use, he uses IV heroin about 20 to 30 bags a day as well as cocaine. He denies any current alcohol use. MEDICATIONS: Regarding his psychiatric medications, patient is not on any psychiatric medications. Vital signs and labs were reviewed by this provider and of note, UDS is positive for opiates, cocaine, and marijuana. IMPRESSION: Opiate use disorder, severe; cocaine use disorder, severe; unintentional overdose; history of depression, likely substance-induced mood disorder at that time. RECOMMENDATIONS: At this time, patient denies depression, suicidal thoughts, or thoughts to harm others. He is organized and does not demonstrate any perceptual disturbance. He does not appear to be an active danger to himself or others. However, patient is in need of substance abuse counseling and aid in this regard. He has psychotherapist social worker discuss possible disposition option such as rehab, the patient's heroin and cocaine addiction. If the patient cannot do inpatient rehab, patient should be referred to outpatient facility that can provide substance abuse treatment including options of Suboxone therapy, methadone therapy, or naltrexone, which was discussed with patient today. Please note, the naltrexone cannot be started until patient has been off of opiates for at least a full week. Please follow up on the much needed referrals for patient. Psychiatry will sign off at this time. Please re-consult as necessary if there are any changes in patient's psychiatric presentation. Pippa Carlisle MD
[2017-09-08] MEDS: Dextrose 5%/0.45% NS 1,000 ML IV SCH (03:14)
[2017-09-08 06:50] VITALS: TEMP 98.4
[2017-09-08 08:14] VITALS: RESP 20; O2SAT 98
[2017-09-08] MEDS ORDERED: DOPamine 400mg/250ml D5W 400 MG/250 ML BAG IV PRN (09:06)
[2017-09-08 09:33] VITALS: BP 128/91; PULSE 67
--- NOTE | 2017-09-08 09:42 | CP.PCM.CON ---
<Alen Porras - Last Filed: 09/08/17 10:40> History of Present Illness - History of Present Illness History of Present Illness: PGY4 Initial GI Consult Angel Gutierrez is a 37M w/ hx of polysubstance abuse, HCV, who presents to the hospital with AMS due to heroin overdose. Pt was not given narcan and is being monitors in the ICU. GI was consulted for opinion about buprenorphine in the setting of chronic HCV. A previous CT on 08/27/17 revealed esophageal and gastric varicies with splenomegaly. Pt denies any previous EGD or colonoscopy. He denies any previous knowledge of varices. He denies any alcohol consumption. He denies any knowledge of any other good borne disease. Pt denies any abd pain , melena, hematemesis or coffee-ground emesis. No other complaints. Denies any previous admission liver related issues or hematemesis. PMHx: Known untreated Hep C, congenital atrophic kidney, reducible rt inguinal hernia, and polysubstance abuse PSHx: Tonsillectomy SHx: heavy smoker, +etoh, heroin and cocaine abuse FamilyHx: Father - Pancreatic Ca Allergies: Iodine, contrast dye, shellfish Endo Hx: Denies ROS: 12-point ROS conducted, neg other than above Past Patient History - Infectious Disease Hx of Infectious Diseases: None - Past Social History Smoking Status: Heavy Smoker > 10 Cigarettes Daily - CARDIAC Hx Cardiac Disorders: No - PULMONARY Hx Respiratory Disorders: No - NEUROLOGICAL Hx Neurological Disorder: No - HEENT Hx HEENT Problems: No - RENAL Hx Chronic Kidney Disease: Yes Other/Comment: atrophic kidney. rigth functioning - ENDOCRINE/METABOLIC Hx Endocrine Disorders: No - HEMATOLOGICAL/ONCOLOGICAL Hx Blood Disorders: Yes Hx Hepatitis C: Yes - INTEGUMENTARY Hx Dermatological Problems: No - MUSCULOSKELETAL/RHEUMATOLOGICAL Hx Musculoskeletal Disorders: No Hx Falls: No - GASTROINTESTINAL Hx Gastrointestinal Disorders: No - GENITOURINARY/GYNECOLOGICAL Hx Genitourinary Disorders: No - PSYCHIATRIC Hx Psychophysiologic Disorder: No Hx Substance Use: Yes - SURGICAL HISTORY Hx Surgeries: Yes Other/Comment: tonsillectomy - ANESTHESIA Hx Anesthesia: No Hx Anesthesia Reactions: No Hx Malignant Hyperthermia: No Meds Allergies/Adverse Reactions: Allergies Allergy/AdvReac Type Severity Reaction Status Date / Time iodine Allergy RASH Verified 09/08/17 22:05 shellfish derived Allergy RASH Verified 09/08/17 22:05 ct scan dye Allergy RASH Uncoded 09/08/17 22:05 - Medications Medications: Current Medications Enoxaparin Sodium (Lovenox) 40 mg SC DAILY [facility] PRN Reason: Protocol Dextrose/Sodium Chloride (Dextrose 5%/0.45% Ns 1000 Ml) 1,000 mls @ 70 mls/hr IV .[id number] [facility] Last Admin: 09/08/17 03:14 Dose: 70 mls/hr Dopamine HCl/Dextrose (Dopamine 400mg/250ml D5w) 400 mg in 250 mls @ 9.951 mls/ hr IV .Q24H PRN; 2.5 MCG/KG/MIN PRN Reason: Other Ondansetron HCl (Zofran Inj) 4 mg IVP Q6H PRN PRN Reason: Nausea/Vomiting Pantoprazole Sodium (Protonix Inj) 40 mg IVP DAILY [facility] Last Admin: 09/07/17 09:23 Dose: 40 mg Physical Exam - Constitutional Appears: Well, No Acute Distress - Head Exam Head Exam: ATRAUMATIC, NORMOCEPHALIC - Eye Exam Eye Exam: Normal appearance - ENT Exam ENT Exam: Mucous Membranes Moist, Normal Exam - Neck Exam Neck exam: Positive for: Normal Inspection - Respiratory Exam Respiratory Exam: Clear to Auscultation Bilateral, NORMAL BREATHING PATTERN. absent: Rales, Rhonchi, Wheezes, Respiratory Distress - Cardiovascular Exam Cardiovascular Exam: REGULAR RHYTHM, +S1, +S2 - GI/Abdominal Exam GI & Abdominal Exam: Normal Bowel Sounds, Soft. absent: Guarding, Organomegaly , Rebound, Rigid - Extremities Exam Extremities exam: Negative for: joint swelling, pedal edema - Neurological Exam Neurological exam: Alert, Oriented x3 - Psychiatric Exam Psychiatric exam: Normal Affect, Normal Mood - Skin Skin Exam: Dry, Intact, Normal Color, Warm Results - Vital Signs Recent Vital Signs: Last Vital Signs Temp 98.4 F 09/08/17 04:00 Pulse 44 L 09/08/17 08:00 Resp 20 09/08/17 08:00 BP 136/103 H 09/08/17 08:00 Pulse Ox 98 09/08/17 08:00 - Labs Result Diagrams: 09/07/17 05:30 09/06/17 23:25 Labs: Laboratory Results - last 24 hr 09/07/17 05:30 HIV 1&2 Antibody Screen Negative Assessment & Plan - Assessment and Plan (Free Text) Assessment: Angel Gutierrez is a 37M w/ hx of HCV, polysubstance abuse who presented to hospital for heroin overdose. Pt was found to have probable esophageal varicies on CT Esophageal and gastric Varicies Chronic HCV Splenomegaly Plan: -NPO after midnight -will try to plan an EGD for tomorrow -may not be a good candidate of esophageal banding of varicies due to evidence of gastric varicies on CT -continue medical management as per primary team -will send for Hep C viral load, will other infectious and autoimmune work-up -Hep C viral load, HepB serologies, Warren antibody, STEFANIA, mitocondrial and smooth antibodies -advised complete alcohol abstinence and avoidance of heroine. -Previous CT reviewed, currently U/S also reviewed -rest of care as per primary team D/W Dr. Gallego <Froylan Gallego - Last Filed: 09/09/17 18:59> Results - Vital Signs Recent Vital Signs: Last Vital Signs Temp 98.4 F 09/08/17 04:00 Pulse 67 09/08/17 10:00 Resp 20 09/08/17 08:00 BP 128/91 H 09/08/17 09:29 Pulse Ox 98 09/08/17 08:00 - Labs Result Diagrams: 09/07/17 05:30 09/06/17 23:25 Attending/Attestation - Attestation I have personally seen and examined this patient.: Yes I have fully participated in the care of the patient.: Yes I have reviewed all pertinent clinical information: Yes Notes (Text): 09/08/17 18:58 37 year old male with h/o HCV, heroin abuse admitted after drug overdose. Signs of portal hypertension and varices on abdominal imaging. Recommend abdominal doppler to eval portal vein.
--- NOTE | 2017-09-08 09:44 | PN ---
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 SUBJECTIVE: The patient is resting in bed, very responsive today. The patient is hemodynamically stable, awake and alert. Moving all extremities. No complaints of pain. No shortness of breath, cough, wheezing, chest congestion. No fever, chills, nausea or vomiting at this time. He did have some episodes of mild bradycardia while he sleeping, but once awakened, his heart rate goes up to normal and no changes in blood pressure. PHYSICAL EXAMINATION: VITAL SIGNS: Physical exam note that his temperature is 98.4, pulse is 57, respirations are 20 and BP is 136/103, O2 saturation is 98 on room air. HEENT: Head is atraumatic, normocephalic. Eyes reactive to light. Ear, nose and throat seemed to be within normal limits. NECK: Supple. No JVD. No thyroid enlargement. No lymph nodes. HEART: Regular rate and rhythm. Normal S1, S2, but mildly bradycardic. LUNGS: Reveal good breath sounds bilaterally. ABDOMEN: Soft. Decreased bowel sounds. GENITALIA AND RECTAL: Deferred. MUSCULOSKELETAL: No joint deformities. EXTREMITIES: Reveal no edema. NEUROLOGICAL: He seemed to be grossly intact. LABORATORY DATA: As far as his laboratories, his labs are pending for today. IMPRESSION: The patient was admitted for polysubstance abuse and drug overdose. He has a history of hepatitis C as well as renal insufficiency. PLAN: Our plan is to continue the IV fluids, monitor the patient closely and continue with Protonix as well as Zofran. We will consult the primary care doctor as to possible Cardiology consult and once possible transfer to telemetry. Gianluca Montanez MD
[2017-09-08] MEDS ORDERED: Enoxaparin 40 mg Syringe SC SCH (10:00)
--- NOTE | 2017-09-08 22:00 | CON ---
DATE: SERVICE: Cardiology. REASON FOR THE CONSULTATION: Bradycardia; heart block; polysubstance abuse, cocaine and heroin; rule out endocarditis. BRIEF CLINICAL HISTORY: This is a 37-year-old male with past medical history of hepatitis C, atrophic kidney, polysubstance abuse, shoot IV drug, cocaine and heroin and active tobacco abuse. Brought by the EMS as reported that the patient might have overdose of the heroin. Patient was given Narcan in the ER. Patient woke up and wanted to sign out. Later on, after discussions with the ER physician, with Dr. Johnson, patient decided to stay in the hospital. Patient is currently in ICU. Denies any chest pain, shortness of breath, any palpitation. While the patient sleeps, heart rate goes to 30 with twice heart block, but when patient wakes up, heart rate in the 70. Hemodynamically, patient is stable. Denies any chest pain. Denies any shortness of breath. Denies any palpitation. PAST MEDICAL HISTORY: Past history is significant for hepatitis C, atrophic kidney, and substance abuse. CURRENT MEDICATION: None. SOCIAL HISTORY: Smokes two packs of cigarette and active drug use, heroin and cocaine. Used 5 to 6 times shoot IV drug, though claims clean needle. Does not share the needle with anybody else, though history significant for hepatitis C. FAMILY HISTORY: Significant for cancer, father; and heart condition. REVIEW OF SYSTEMS: As per HPI. PHYSICAL EXAMINATION: VITAL SIGNS: Temperature afebrile, heart rate , blood pressure 120/90. HEENT: PERRLA. Extraocular muscles intact. NECK: Supple. No carotid bruit. No thyromegaly. CHEST: Clear to auscultation. HEART: S1, S2 regular. ABDOMEN: Soft. EXTREMITIES: Clubbing and cyanosis negative. LABORATORY DATA: Blood workup as follows: WBC 3.5, hemoglobin 11.8, hematocrit 38.2, platelet count 171. Chemistry shows sodium 140, potassium 4.3, chloride 105, carbon dioxide 27, anion gap of 14, BUN 21, creatinine 1.0. Total CPK 447, CPK-MB 1.1. EKG showed normal sinus, sinus arrhythmia, poor RR progression. The telemetry monitoring shows heart rate 30 with PV, no QRS complex, 2 to 3 times happened dropped beat, and heart block. IMPRESSION: Heart block, history of substance abuse. Toxicology screen positive for cocaine and cannabis indica and opium. History of substance abuse, actively using IV cocaine and heroin 5 to 6 times a day, shoot IV drug; history of active tobacco abuse. Rule out endocarditis, rule out abscess in the aortic valve that can lead to the conduction system abnormality. High risk for sudden cardiac . RECOMMENDATION: We will get echo to asses LV function to rule out endocarditis. We will start low dose of beta maye to see if the heart rate picks up. We will follow. Discuss with Dr. Gianluca Montanez. We will keep the patient in the ICU for next 24 to 48 hours. Sent a stat blood culture again and sed rate as well. We will follow with you. Thank you, Dr. Johnsno, for providing us the opportunity in taking care of the patient, Angel Gutierrez. Debby Nazario MD
--- NOTE | 2017-09-09 18:56 | HP ---
The patient was admitted on 09/07/2017, because of heroin overdose. HISTORY OF PRESENT ILLNESS: A 37-year-old male with history of heroin use and chronic hepatitis C, came in and was found to be on the floor unresponding, 911 called. The patient was brought in the ER. He was poorly responding, given Narcan, responded well, and was admitted to telemetry floor with neuro check. Overnight, the patient had respiratory depression again and his mental status got worse and was transferred to ICU. PAST MEDICAL HISTORY: Chronic hepatitis C, heroin use, cocaine use, marijuana. He has one kidney. ALLERGIES: IODINE, SHELLFISH, CT SCAN DYE. SOCIAL HISTORY: He does smoke. He does not drink any alcohol. FAMILY HISTORY: Noted his father has neuroendocrine pancreatic cancer, COPD, and coronary artery disease. REVIEW OF SYSTEMS: He denied any symptoms when we examined him next day. PHYSICAL EXAMINATION: VITAL SIGNS: Temperature 97, heart rate 71, blood pressure 135/77, respirations 23, saturation 97% on nasal cannula. HEAD AND NECK: Normal. No JVD. No thyromegaly. CHEST: Clear. Good air entry. CARDIAC: First sound and second sound normal. ABDOMEN: Soft and nontender. EXTREMITIES: No edema. SKIN: Needle mitchell on both arms. NEUROLOGIC: Normal. LABORATORY STUDY: When he came in, he had a white count of 4, hemoglobin 12.6, hematocrit 40.3, platelets 97, on repeat, it was 171. Chemistry: Sodium 142, potassium 4.3, chloride 105, bicarbonate 27. BUN 21, creatinine 1. Liver function test is normal. The patient has urine toxicology positive for opioids, negative for methadone, positive for cocaine and cannabinoids. Negative for salicylates, negative for Tylenol, negative for alcohol. PTT 28.9. The patient had urinalysis which was negative. At serology workup, HIV-1 and HIV-2 are negative; and he had blood gas which shows pCO2 of 46, pO2 of 60, bicarbonate 28.5, pH 7.40. IMPRESSION: This is a 37-year-old male admitted with heroin overdose. The patient was initially given Narcan, admitted to telemetry, got worse, was having heart block type Mobitz II, was given Narcan again, and was transferred to ICU. The patient was maintained there and cardiology consult was ordered. GI saw him and recommended endoscopic evaluation for possible varices and evaluation for chronic hepatitis C. The patient was also seen by psychiatrist who evaluated him and he does not have any depression. No suicidal ideations. The patient wants to quit heroin, but he cannot because of the withdrawal pains. The patient denied any suicidal or any psychiatric illnesses and at this time, we will continue to follow up the patient, follow up recommendation. Cardiology consult will see the patient. GI consult will do endoscopy. Once the patient is stable, we will follow up for his medical treatment for Subutex injection once a week after being 1 week on medications. The patient finally signed against medical advice. DISCHARGE DIAGNOSES: 1. Heroin abuse with overdose. 2. Heart block. 3. Respiratory failure. 4. Liver cirrhosis. 5. Gastric varices and splenic varices only. PLAN: To hold the patient in and do the following consult; however, the patient signed against medical advice. Humberto Johnson MD
[2017-09-10 23:23] LABS: ALPHA-2-MACROGLOBULIN 241 mg/dL (106-279); GGT 12 U/L (3-90)
== END 2017-09-08 10:41 | disposition left against medical advice (07) ==
LOC: ED 23:01 → ERH 09-07 00:34 → 3RSO 09-07 03:20 → ICU 09-07 04:30
PROVIDERS: ADMIT Internal Medicine; ATTEND Internal Medicine
DX: T40.1X1A Poisoning by heroin, accidental (unintentional), initial encounter (principal); J96.90 Respiratory failure, unspecified, unspecified whether with hypoxia or hypercapnia; I44.1 Atrioventricular block, second degree; F11.10 Opioid abuse, uncomplicated; F14.10 Cocaine abuse, uncomplicated; B18.2 Chronic viral hepatitis C; K74.60 Unspecified cirrhosis of liver; I86.4 Gastric varices; I86.8 Varicose veins of other specified sites; Q60.3 Renal hypoplasia, unilateral; K40.90 Unilateral inguinal hernia, without obstruction or gangrene, not specified as recurrent; F17.200 Nicotine dependence, unspecified, uncomplicated; R16.1 Splenomegaly, not elsewhere classified; N28.9 Disorder of kidney and ureter, unspecified
CPT/HCPCS: 36415; 76705; 80053; 80320; 80324; 80329; 80345; 80346; 80349; 80353; 80358; 80361; 81003; 82550; 82553; 82803; 83615; 83992; 84484; 85027; 85651; 85730; 86664; 86665; 86703; 87040; 87081; 93005; 96374; 99285; C9113; G0378; J1265; J1650; J2310; J2405; J7042

== ENCOUNTER 2017-09-08 21:58 | Observation (INO) | payer OTHER ==
[2017-09-08 22:06] VITALS: BMI 32.5
--- NOTE | 2017-09-08 22:14 | ED PDOC ---
Arrival/HPI - General Chief Complaint: Chest Pain Time Seen by Provider: 09/08/17 21:59 Historian: Patient, Spouse - History of Present Illness Narrative History of Present Illness (Text): 37yoM, who signed out AMA for drug heroin overdose, and felt increased temp, generalized chest pain without specific sob. pt stated did do heroin earlier after discharge but has been feeling fine wo n/v/brown/dizziness/abdomen pain/ numbness/tingling/loss of limb function/travel/prior blood clots/prior cancer history. refused std testing or treatment at this time. 09/08/17 22:11 Time/Duration: 4-6 hours Symptom Onset: Gradual Symptom Course: Intermittent Quality: Aching Severity Level: 1 Activities at Onset: Rest Context: Sitting Past Medical History - Provider Review Nursing Documentation Reviewed: Yes - Travel History Have you recently traveled outside [place] w/in the past 3 mons?: No - Infectious Disease Hx of Infectious Diseases: None - Cardiac Hx Cardiac Disorders: No - Pulmonary Hx Respiratory Disorders: No - Neurological Hx Neurological Disorder: No - HEENT Hx HEENT Disorder: No - Renal Hx Renal Disorder: Yes Other/Comment: atrophic kidney. rigth functioning - Endocrine/Metabolic Hx Endocrine Disorders: No - Hematological/Oncological Hx Blood Disorders: Yes Hx Hepatitis C: Yes - Integumentary Hx Dermatological Disorder: No - Musculoskeletal/Rheumatological Hx Musculoskeletal Disorders: No Hx Falls: No - Gastrointestinal Hx Gastrointestinal Disorders: No - Genitourinary/Gynecological Hx Genitourinary Disorders: No - Psychiatric Hx Psychophysiologic Disorder: No Hx Substance Use: Yes - Surgical History Other/Comment: tonsillectomy - Anesthesia Hx Anesthesia: No Hx Anesthesia Reactions: No Hx Malignant Hyperthermia: No - Suicidal Assessment Feels Threatened In Home Enviroment: No Family/Social History - Physician Review Nursing Documentation Reviewed: Yes Family/Social History: No Known Family HX Smoking Status: Heavy Smoker > 10 Cigarettes Daily Hx Alcohol Use: Yes Hx Substance Use: Yes Hx Substance Use Treatment: No Allergies/Home Meds Allergies/Adverse Reactions: Allergies iodine Allergy (Verified 09/08/17 22:05) RASH shellfish derived Allergy (Verified 09/08/17 22:05) RASH ct scan dye Allergy (Uncoded 09/08/17 22:05) RASH hives Home Medications: Home Meds Medication Instructions Recorded Confirmed Buprenorphine HCl/Naloxone HCl 1 tab PO Q8H 09/08/17 09/08/17 [Buprenorphin-Naloxon 8-2 mg Sl] Doxycycline Hyclate [Doryx] 100 mg PO BID 09/08/17 09/08/17 Review of Systems - Review of Systems Constitutional: Normal Eyes: Normal ENT: Normal Respiratory: Normal Cardiovascular: Chest Pain Gastrointestinal: Normal Genitourinary Male: Normal Musculoskeletal: Normal Skin: Normal Neurological: Normal Endocrine: Normal Hemo/Lymphatic: Normal Psychiatric: Normal Physical Exam Vital Signs Reviewed: Yes Vital Signs Temp Pulse Resp BP Pulse Ox 09/08/17 21:58 98 F 90 18 137/81 96 Appearance: Positive for: Well-Appearing, Non-Toxic, Comfortable Pain Distress: None Mental Status: Positive for: Alert and Oriented X 3 - Systems Exam Head: Present: Atraumatic, Normocephalic Pupils: Present: PERRL Extroacular Muscles: Present: EOMI Conjunctiva: Present: Normal Ears: Present: Normal Mouth: Present: Moist Mucous Membranes Pharnyx: Present: Normal Nose (External): Present: Atraumatic Nose (Internal): Present: Normal Inspection Neck: Present: Normal Range of Motion Respiratory/Chest: Present: Clear to Auscultation, Good Air Exchange Cardiovascular: Present: Regular Rate and Rhythm Abdomen: No: Tenderness, Distention, Normal Bowel Sounds, Peritoneal Signs, Rebound, Guarding, McBurney's Point Tender, Rovsing's Sign Present, Hernias, Feeding Tubes, Ostomy Tubes, Mass/Organomegaly, Scars, Other Genitourinary Male: Present: Other (mild right groin discomfort but testicular good position with positive cremasteric and wo penis lesions/tenderness.) Back: Present: Normal Inspection Upper Extremity: Present: Normal Inspection Lower Extremity: Present: Normal Inspection Neurological: Present: GCS=15, CN II-XII Intact, Speech Normal, Motor Func Grossly Intact Skin: Present: Warm, Normal Color Psychiatric: Present: Alert, Oriented x 3, Normal Insight, Normal Concentration Medical Decision Making ED Course and Treatment: 37yoM, who signed out AMA for drug heroin overdose, and felt increased temp, generalized chest pain without specific sob. pt stated did do heroin earlier after discharge but has been feeling fine wo n/v/brown/dizziness/abdomen pain/ numbness/tingling/loss of limb function/travel/prior blood clots/prior cancer history. refused std testing or treatment at this time. denies suicidal/ homicidal/hallucinations. sent by Dr. Johnson for for endocarditis work-up. 09/08/17 22:15 09/08/17 22:22 PERC negative. ECG: NSR, flipped t waves avr, v1, flattened iii. similar to 09/07/17. 09/08/17 22:59 CXR no acute. 09/09/17 00:09 wbc 3.4 hb 12.5 plts 71 L trop negative lactic 0.7 influenza negative 09/09/17 00:13 d/w Dr. Johnson who stated admit observation/telemetry, consult Dr. Nazario cardiology, consult Dr. Gallego GI, keep npo at this time, will fu ct a/p for right groin hernia, consult Dr. Olguin surgery. 09/09/17 00:14 CT a/p FINDINGS: LOWER THORAX: Incidental 2 noncalcified pulmonary nodules in the right lung base , both measuring 5 mm. In low-risk patients (minimal or absent history of smoking or other known risk factors), no follow-up is necessary. For high-risk patients (history of smoking or other known risk factors), an optional chest CT at 12 months could be performed. ABDOMEN: LIVER: No acute abnormality of the liver identified. GALLBLADDER AND BILE DUCTS: No CT evidence of acute cholecystitis. No evidence of significant biliary ductal dilatation. PANCREAS: No CT evidence of acute pancreatitis. SPLEEN: No acute abnormality of the spleen identified. ADRENALS: No acute abnormality of the adrenal glands identified. KIDNEYS AND URETERS: Stable appearance of marked atrophy and scarring of the left kidney, associated with left renal calcifications. No acute abnormality of the right kidney identified. No evidence of hydroureteronephrosis. STOMACH AND BOWEL: Debris/retained food material throughout the lumen of the stomach. Retained stool noted throughout the colon, with no evidence of a significant large bowel obstruction or fecal impaction. Otherwise, no significant abnormality of the bowel is identified. No evidence of small bowel obstruction. APPENDIX: Normal appendix is not seen, however, there are no significant inflammatory changes visualized in the expected location of the appendix to suggest appendicitis. Recommend clinical correlation. PELVIS: BLADDER: No acute abnormality of the bladder identified. REPRODUCTIVE: No acute abnormality of the reproductive organs is seen. ABDOMEN and PELVIS: INTRAPERITONEAL SPACE: Small amount of pelvic free fluid. No evidence of free air. BONES/JOINTS: No acute fractures or other acute bony abnormality noted. SOFT TISSUES: Stable appearance of a right inguinal hernia, containing fat and fluid. VASCULATURE: No evidence of abdominal aortic aneurysm. No evidence of periaortic hemorrhage. LYMPH NODES: Stable appearance of mild bilateral inguinal lymphadenopathy. This is a nonspecific finding. No evidence of diffuse pathologic lymphadenopathy. IMPRESSION: - Small amount of pelvic free fluid, an abnormal finding in a male patient, of uncertain etiology. - Otherwise, no evidence of significant acute process. Appendix is not seen, however. - Right inguinal hernia containing fat and fluid, similar in appearance to a prior CT. - Incidental subcentimeter pumonary nodules. See recommendations above. - See above for remaining findings. 09/09/17 01:08 Reassessment Condition: Improved - Lab Interpretations Lab Results: 09/08/17 23:10 09/08/17 23:10 Lab Results 09/08/17 23:10: pO2 168 H, VBG pH 7.39, VBG pCO2 55.0, VBG HCO3 33.3 H, VBG Total CO2 35.0 H, VBG O2 Sat (Calc) 99.0 H, VBG Base Excess 6.7 H, VBG Potassium 4.1, Sodium 139.0, Chloride 106.0, Glucose 91, Lactate 0.7, FiO2 21.0 , Venous Blood Potassium 4.1 09/08/17 23:10: Influenza Typ A,B (EIA) Negative for flu a/b 09/08/17 23:10: Sodium 143, Chloride 103, Potassium 4.2, Carbon Dioxide 29, Anion Gap 14, BUN 16, Creatinine 1.0, Est GFR ( Amer) > 60, Est GFR (Non- Af Amer) > 60, Random Glucose 90, Calcium 9.5, Magnesium 2.1, Total Bilirubin 0.4, AST 31, ALT 38, Alkaline Phosphatase 51, Lactate Dehydrogenase 457, Total Creatine Kinase 233 H, CK-MB (CK-2) 2.7, CK-MB (CK-2) % Cancelled, Troponin I < 0.01, NT-Pro-B Natriuret Pep 118, Total Protein 7.3, Albumin 3.8, Globulin 3.5, Albumin/Globulin Ratio 1.1 09/08/17 23:10: PT 12.6 H, INR 1.10 H, APTT 22.5 L 09/08/17 23:10: WBC 3.4 L, RBC 5.21, Hgb 12.5 L, Hct 39.4 L, MCV 75.6 L, MCH 24.0 L, MCHC 31.7, RDW 15.1 H, Plt Count 71 L, MPV 9.4, Gran % 56.2, Lymph % ( Auto) 30.3, [place] % (Auto) 12.0 H, Eos % (Auto) 1.2 L, Baso % (Auto) 0.3, Gran # 1.93, Lymph # (Auto) 1.0 L, [place] # (Auto) 0.4, Eos # (Auto) 0.0, Baso # (Auto) 0.01 I have reviewed the lab results: Yes - RAD Interpretation Radiology Orders: 09/08/17 22:09 CHEST PORTABLE [RAD] Stat 09/08/17 22:58 ABDOMEN & PELVIS [ABD & PELVIS W/O PO OR IV CONT] [CT] Stat 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 similar to 09/07/17.) Type: 12 lead EKG Comparison: Similar to previous EKG (NSR, flipped t waves avr, v1, flattened iii. similar to 09/07/17.) - Medication Orders Current Medication Orders: Sodium Chloride (Sodium Chloride 0.9%) 1,000 mls @ 100 mls/hr IV .Q10H [facility] Last Admin: 09/09/17 01:04 Dose: 100 mls/hr eMAR Start Stop Document 09/09/17 01:04 SS (Rec: 09/09/17 01:04 SS [id number]) Intravenous Solution Start Date 09/09/17 Start Time 01:04 Discontinued Medications Aspirin (Aspirin) 325 mg PO STAT STA Stop: 09/08/17 22:10 Last Admin: 09/09/17 00:32 Dose: 325 mg Disposition/Present on Arrival - Present on Arrival Any Indicators Present on Arrival: No History of DVT/PE: No History of Uncontrolled Diabetes: No Urinary Catheter: No History of Decub. Ulcer: No History Surgical Site Infection Following: None - Disposition Have Diagnosis and Disposition been Completed?: No Diagnosis: Chest pain Disposition: HOSPITALIZED Disposition Time: 01:09 Patient Plan: Admission, Telemetry Condition: IMPROVED
[2017-09-08 23:30] LABS: VENOUS BLOOD GAS BASE EXCESS 6.7 mmol/L (0.0-2.0); VENOUS BLOOD GAS PO2 168 mm/Hg (30-55); VENOUS BLOOD PH 7.39 (7.32-7.43)
[2017-09-08 23:44] LABS: BASO # 0.01 K/mm3 (0.0-2.0); BASO % 0.3 % (0.0-3.0); EOS % 1.2 % (1.5-5.0); GRAN # 1.93 (1.4-6.5); GRAN % 56.2 % (50.0-68.0); HEMOGLOBIN 12.5 g/dL (14.0-18.0); LYMPH % 30.3 % (22.0-35.0); MEAN CELL VOLUME 75.6 fl (80.0-105.0); MEAN CORPUSCULAR HGB CONC 31.7 g/dl (31.0-37.0); MEAN PLATELET VOLUME 9.4 fl (7.0-11.0); MONO # 0.4 (0.1-0.6); RBC 5.21 10^6/uL (3.5-6.1); RED CELL DISTRIBUTION WIDTH 15.1 % (11.5-14.5); WHITE BLOOD COUNT 3.4 10^3/ul (4.5-11.0)
[2017-09-08 23:50] LABS: ALB/GLOB RATIO 1.1 (1.1-1.8); ALBUMIN 3.8 g/dL (3.0-4.8); ALT/SGPT 38 U/L (7-56); AST/SGOT 31 U/L (17-59); BLOOD UREA NITROGEN 16 mg/dL (7-21); CALCIUM 9.5 mg/dL (8.4-10.5); GFR AFRICAN-AMERICAN > 60; GFR NON-AFRICAN AMERICAN > 60; INR 1.1 (0.93-1.08); PARTIAL THROMBOPLASTIN TIME 22.5 Seconds (25.1-36.5); PROTHROMBIN TIME 12.6 SECONDS (9.4-12.5)
[2017-09-08 23:55] LABS: B-TYPE NATRIURETIC PEPTIDE 118 pg/mL (0-450); TROPONIN I < 0.01 ng/mL
[2017-09-09 00:22] LABS: CK-MB 2.7 ng/mL (0.0-3.6)
[2017-09-09] MEDS: Sodium Chloride 0.9% 1,000 ML IV SCH ×2 (01:04→15:23)
--- NOTE | 2017-09-09 01:04 | CT ---
EXAM: CT Abdomen and Pelvis Without Intravenous Contrast EXAM DATE/TIME: 09/08/2017 10:58 PM CLINICAL HISTORY: 37 years old, male; Pain; Abdominal pain; Localized; Right lower quadrant (rlq); Additional info: 37yom, with right groin discomfort TECHNIQUE: Axial computed tomography images of the abdomen and pelvis without intravenous contrast. All CT scans at this facility use one or more dose reduction techniques, viz.: automated exposure control; ma/kV adjustment per patient size (including targeted exams where dose is matched to indication; i.e. head); or iterative reconstruction technique. Coronal and sagittal reformatted images were created and reviewed. COMPARISON: Prior CT abdomen and pelvis of 2017-08-27 FINDINGS: LOWER THORAX: Incidental 2 noncalcified pulmonary nodules in the right lung base, both measuring 5 mm. In low-risk patients (minimal or absent history of smoking or other known risk factors), no follow-up is necessary. For high-risk patients (history of smoking or other known risk factors), an optional chest CT at 12 months could be performed. ABDOMEN: LIVER: No acute abnormality of the liver identified. GALLBLADDER AND BILE DUCTS: No CT evidence of acute cholecystitis. No evidence of significant biliary ductal dilatation. PANCREAS: No CT evidence of acute pancreatitis. SPLEEN: No acute abnormality of the spleen identified. ADRENALS: No acute abnormality of the adrenal glands identified. KIDNEYS AND URETERS: Stable appearance of marked atrophy and scarring of the left kidney, associated with left renal calcifications. No acute abnormality of the right kidney identified. No evidence of hydroureteronephrosis. STOMACH AND BOWEL: Debris/retained food material throughout the lumen of the stomach. Retained stool noted throughout the colon, with no evidence of a significant large bowel obstruction or fecal impaction. Otherwise, no significant abnormality of the bowel is identified. No evidence of small bowel obstruction. APPENDIX: Normal appendix is not seen, however, there are no significant inflammatory changes visualized in the expected location of the appendix to suggest appendicitis. Recommend clinical correlation. PELVIS: BLADDER: No acute abnormality of the bladder identified. REPRODUCTIVE: No acute abnormality of the reproductive organs is seen. ABDOMEN and PELVIS: INTRAPERITONEAL SPACE: Small amount of pelvic free fluid. No evidence of free air. BONES/JOINTS: No acute fractures or other acute bony abnormality noted. SOFT TISSUES: Stable appearance of a right inguinal hernia, containing fat and fluid. VASCULATURE: No evidence of abdominal aortic aneurysm. No evidence of periaortic hemorrhage. LYMPH NODES: Stable appearance of mild bilateral inguinal lymphadenopathy. This is a nonspecific finding. No evidence of diffuse pathologic lymphadenopathy. IMPRESSION: - Small amount of pelvic free fluid, an abnormal finding in a male patient, of uncertain etiology. - Otherwise, no evidence of significant acute process. Appendix is not seen, however. - Right inguinal hernia containing fat and fluid, similar in appearance to a prior CT. - Incidental subcentimeter pumonary nodules. See recommendations above. - See above for remaining findings.
[2017-09-09 01:12] LABS: URINE BILIRUBIN SMALL (NEGATIVE); URINE BLOOD NEGATIVE (NEGATIVE); URINE GLUCOSE (UA) NEGATIVE (NEGATIVE); URINE LEUKOCYTE ESTERASE NEGATIVE Leu/uL (NEGATIVE); URINE PROTEIN NEGATIVE mg/dL (<30 mg/dL)
[2017-09-09 01:31] LABS: URINE APPEARANCE CLEAR (CLEAR); URINE COLOR YELLOW (YELLOW)
[2017-09-09 01:47] LABS: BARBITURATES, UR NEGATIVE (NEGATIVE)
[2017-09-09 02:07] LABS: BENZODIAZEPINES, UR NEGATIVE (NEGATIVE); OPIATES, UR POSITIVE (NEGATIVE); PHENCYCLIDINE, UR NEGATIVE (NEGATIVE)
--- NOTE | 2017-09-09 04:20 | CP.PCM.CON ---
History of Present Illness - History of Present Illness History of Present Illness: General Surgery consult for DR. Olguin Consulted for: R inguinal hernia 37M with PMH of Hepatitis C, failure of one kidney, and current cocain and heroin abuse, who was recently admitted for heroine overdose and signed out AMA yesterday was re-admitted for chest pain. Patient has a chronic reducible right inguinal hernia for 7 months presented for which general surgery is consulted. Patient states that it is tender but reducible but for the past week it has been more difficult to reduce the hernia, and he has had nausea and non- bilious, non-bloody vomiting. Denies any constipation or diarrhea and is passing gas. Reports RUQ pain he attributes to his hepatitis C but no other abdominal pain. STates that a few days ago he noted his right testicle was enlarged but not erythematous but that it resolved on it's own. reports subjective fevers at home but denie chills. Patient presented a couple of weeks ago for pain in the hernia, CT scan showed fat and fluid containing hernia, which was physically reducible, and patient was discharged with plans to follow up with Dr. Olguin in his office, which patient did not do. Last used heroin today after he signed out. PMH: atrophic left kidney, hep c, current heroin and cocaine abuse PSH: tonsillectomy ALL: iodine Review of Systems - Review of Systems All systems: reviewed and no additional remarkable complaints except (as per HPI ) Past Patient History - Infectious Disease Hx of Infectious Diseases: None - Past Medical History & Family History Past Medical History?: Yes Past Family History: Reviewed and not pertinent - Past Social History Smoking Status: Heavy Smoker > 10 Cigarettes Daily Alcohol: Occasional Drugs: Cannabis, Cocaine, Opiates Home Situation {Lives}: With Family - CARDIAC Hx Cardiac Disorders: No - PULMONARY Hx Respiratory Disorders: No - NEUROLOGICAL Hx Neurological Disorder: Yes Hx Dizziness: Yes (on and off) - HEENT Hx HEENT Problems: No - RENAL Hx Chronic Kidney Disease: Yes Other/Comment: Right Kidney Atrophy - ENDOCRINE/METABOLIC Hx Endocrine Disorders: No - HEMATOLOGICAL/ONCOLOGICAL Hx Blood Disorders: Yes Hx Hepatitis C: Yes - INTEGUMENTARY Hx Dermatological Problems: Yes - MUSCULOSKELETAL/RHEUMATOLOGICAL Hx Musculoskeletal Disorders: No Hx Falls: No - GASTROINTESTINAL Hx Gastrointestinal Disorders: No - GENITOURINARY/GYNECOLOGICAL Hx Genitourinary Disorders: No - PSYCHIATRIC Hx Psychophysiologic Disorder: Yes Hx Anxiety: Yes Hx Substance Use: Yes (Heroin use (40-50)) - SURGICAL HISTORY Hx Surgeries: Yes Other/Comment: Tonsillectomy - ANESTHESIA Hx Anesthesia: No Hx Anesthesia Reactions: No Hx Malignant Hyperthermia: No Meds Allergies/Adverse Reactions: Allergies Allergy/AdvReac Type Severity Reaction Status Date / Time iodine Allergy RASH Verified 09/08/17 22:05 shellfish derived Allergy RASH Verified 09/08/17 22:05 ct scan dye Allergy RASH Uncoded 09/08/17 22:05 - Medications Medications: Current Medications Home Med (Home Med) 1 unit SL TID TREY Sodium Chloride (Sodium Chloride 0.9%) 1,000 mls @ 100 mls/hr IV .Q10H TREY Last Admin: 09/09/17 01:04 Dose: 100 mls/hr Physical Exam - Constitutional Appears: Well, Non-toxic, No Acute Distress - Head Exam Head Exam: ATRAUMATIC, NORMOCEPHALIC - Eye Exam Eye Exam: Normal appearance. absent: Conjunctival injection, Scleral icterus - ENT Exam ENT Exam: Mucous Membranes Moist, Normal Oropharynx - Respiratory Exam Respiratory Exam: NORMAL BREATHING PATTERN. absent: Accessory Muscle Use, Respiratory Distress - Cardiovascular Exam Cardiovascular Exam: RRR - GI/Abdominal Exam GI & Abdominal Exam: Organomegaly (hepatomegaly), Soft, Tenderness (moderate RUQ pain, mild LLQ pain). absent: Distended, Guarding, Rebound - Exam Exam: Circumcision. absent: Scrotal Swelling, Testicular Tenderness External exam: absent: Ecchymosis, Erythema - Expanded Exam Expanded exam: cremasteric reflex present: Bilateral, inguinal hernia: Right ( reducible inguinal hernia, moderately tender) - Extremities Exam Extremities exam: Positive for: full ROM. Negative for: pedal edema - Neurological Exam Neurological exam: Alert, Oriented x3 - Psychiatric Exam Psychiatric exam: Normal Affect, Normal Mood - Skin Skin Exam: Dry, Normal Color, Warm Results - Vital Signs Recent Vital Signs: Last Vital Signs Temp 97.9 F 09/09/17 02:06 Pulse 80 09/09/17 02:06 Resp 18 09/09/17 02:06 BP 146/81 09/09/17 02:06 Pulse Ox 98 09/09/17 01:05 - Labs Result Diagrams: 09/08/17 23:10 09/08/17 23:10 Labs: Laboratory Results - last 24 hr 09/09/17 09/09/17 01:02 01:02 Urine Color Yellow Urine Appearance Clear Urine pH 6.0 Ur Specific [place] >= 1.030 Urine Protein Negative Urine Glucose (UA) Negative Urine Ketones Negative Urine Blood Negative Urine Nitrate Negative Urine Bilirubin Small H Urine Urobilinogen 1.0 H Ur Leukocyte Esterase Negative Urine Opiates Screen Positive H Urine Methadone Screen Negative Ur Barbiturates Screen Negative Ur Phencyclidine Scrn Negative Ur Amphetamines Screen Negative U Benzodiazepines Scrn Negative U Oth Cocaine Metabols Positive H U Cannabinoids Screen Positive H - Imaging and Cardiology CT scan - abdomen Status: Image reviewed by me, Report reviewed by me CT scan - pelvis Status: Image reviewed by me, Report reviewed by me Assessment & Plan - Assessment and Plan (Free Text) Assessment: 37M with chronic, tender, reducible Right inguinal hernia containing fat and fluid Plan: -No emergent surgical intervention indicated at this time. Hernia is reducible and stable on CT and patient's chest pain must be worked up prior to any surgical intervention -PRN medication for nausea and pain -Monitor vitals for fevers -F/U GI and cardiology recs -May advance diet as tolerated per surgery but continue NPO if necessary for cardio/GI Will discuss with Dr. Olguin, further recs per him Alisha Mark PGY2
[2017-09-09 07:02] VITALS: RESP 20
--- NOTE | 2017-09-09 08:50 | RAD ---
HISTORY: Chest pain COMPARISON: 01/04/2016. FINDINGS: LUNGS: The lungs are well inflated and clear. PLEURA: No significant pleural effusion identified, no pneumothorax apparent. CARDIOVASCULAR: Normal. OSSEOUS STRUCTURES: No significant abnormalities. VISUALIZED UPPER ABDOMEN: Normal. OTHER FINDINGS: None. IMPRESSION: No active pulmonary disease.
--- NOTE | 2017-09-09 09:49 | CARD ---
APPROVED REPORT EKG Measurement Heart [id number] <Conclusion> Normal sinus rhythm Normal ECG
[2017-09-09] MEDS ORDERED: [UNRECOGNIZED DRUG - OTHER] SL SCH ×2 (10:00→14:00)
--- NOTE | 2017-09-09 10:34 | CP.PCM.CON ---
<Keara Currie - Last Filed: 09/09/17 14:11> History of Present Illness - History of Present Illness History of Present Illness: GI Fellow PGY4 Consult Note This is a 37M w/ hx of polysubstance abuse, HCV, who presents to the hospital with complaints of chest pain and dizziness after heroin use. Pt was admitted to the hospital one day ago for AMS and heroin overdose but left AMA. After discharge, pt reports he used 4 bags of heroin and injected into his left neck. Pt with no active GI bleeding, denies prior treatment of HCV, denies hx of variceal bleeding. A previous CT on 08/27/17 revealed esophageal and gastric varices with splenomegaly. Pt denies any previous EGD or colonoscopy. He denies any previous knowledge of varices. He denies any alcohol consumption. Pt denies any abd pain, melena, hematemesis or coffee-ground emesis. No other complaints. Denies any previous admission liver related issues or hematemesis. ROS: 12-point ROS conducted, neg other than above PMHx: Known untreated Hep C, congenital atrophic kidney, reducible rt inguinal hernia, and polysubstance abuse PSHx: Tonsillectomy SHx: heavy smoker, +etoh, heroin and cocaine abuse FamilyHx: Father - Pancreatic Ca Endo Hx: Denies Past Patient History - Infectious Disease Hx of Infectious Diseases: None - Past Medical History & Family History Past Medical History?: Yes Past Family History: Reviewed and not pertinent - Past Social History Smoking Status: Heavy Smoker > 10 Cigarettes Daily Alcohol: Occasional Drugs: Cannabis, Cocaine, Opiates Home Situation {Lives}: With Family - CARDIAC Hx Cardiac Disorders: No - PULMONARY Hx Respiratory Disorders: No - NEUROLOGICAL Hx Neurological Disorder: Yes Hx Dizziness: Yes (on and off) - HEENT Hx HEENT Problems: No - RENAL Hx Chronic Kidney Disease: Yes Other/Comment: Right Kidney Atrophy - ENDOCRINE/METABOLIC Hx Endocrine Disorders: No - HEMATOLOGICAL/ONCOLOGICAL Hx Blood Disorders: Yes Hx Hepatitis C: Yes - INTEGUMENTARY Hx Dermatological Problems: Yes - MUSCULOSKELETAL/RHEUMATOLOGICAL Hx Musculoskeletal Disorders: No Hx Falls: No - GASTROINTESTINAL Hx Gastrointestinal Disorders: No - GENITOURINARY/GYNECOLOGICAL Hx Genitourinary Disorders: No - PSYCHIATRIC Hx Psychophysiologic Disorder: Yes Hx Anxiety: Yes Hx Substance Use: Yes (Heroin use (40-50)) - SURGICAL HISTORY Hx Surgeries: Yes Other/Comment: Tonsillectomy - ANESTHESIA Hx Anesthesia: No Hx Anesthesia Reactions: No Hx Malignant Hyperthermia: No Meds Allergies/Adverse Reactions: Allergies Allergy/AdvReac Type Severity Reaction Status Date / Time iodine Allergy RASH Verified 09/08/17 22:05 shellfish derived Allergy RASH Verified 09/08/17 22:05 ct scan dye Allergy RASH Uncoded 09/08/17 22:05 - Medications Medications: Current Medications Home Med (Home Med) 1 unit SL TID TREY Sodium Chloride (Sodium Chloride 0.9%) 1,000 mls @ 100 mls/hr IV .Q10H TREY Last Admin: 09/09/17 01:04 Dose: 100 mls/hr Physical Exam - Constitutional Appears: Non-toxic, No Acute Distress - Head Exam Head Exam: ATRAUMATIC, NORMAL INSPECTION, NORMOCEPHALIC - Eye Exam Eye Exam: EOMI, Normal appearance, PERRL - ENT Exam ENT Exam: Mucous Membranes Moist - Neck Exam Neck exam: Positive for: Normal Inspection - Respiratory Exam Respiratory Exam: Clear to Auscultation Bilateral, NORMAL BREATHING PATTERN - Cardiovascular Exam Cardiovascular Exam: REGULAR RHYTHM, RRR, +S1, +S2 - GI/Abdominal Exam GI & Abdominal Exam: Normal Bowel Sounds, Soft. absent: Distended, Guarding - Extremities Exam Extremities exam: Positive for: normal inspection - Back Exam Back exam: NORMAL INSPECTION - Neurological Exam Neurological exam: Alert, Oriented x3 - Psychiatric Exam Psychiatric exam: Normal Affect, Normal Mood - Skin Skin Exam: Dry, Intact, Normal Color, Warm Results - Vital Signs Recent Vital Signs: Last Vital Signs Temp 97.6 F 09/09/17 06:00 Pulse 70 09/09/17 06:00 Resp 20 09/09/17 06:00 BP 126/70 09/09/17 06:00 Pulse Ox 97 09/09/17 06:00 - Labs Result Diagrams: 09/08/17 23:10 09/08/17 23:10 Labs: Laboratory Results - last 24 hr 09/09/17 09/09/17 01:02 01:02 Urine Color Yellow Urine Appearance Clear Urine pH 6.0 Ur Specific [place] >= 1.030 Urine Protein Negative Urine Glucose (UA) Negative Urine Ketones Negative Urine Blood Negative Urine Nitrate Negative Urine Bilirubin Small H Urine Urobilinogen 1.0 H Ur Leukocyte Esterase Negative Urine Opiates Screen Positive H Urine Methadone Screen Negative Ur Barbiturates Screen Negative Ur Phencyclidine Scrn Negative Ur Amphetamines Screen Negative U Benzodiazepines Scrn Negative U Oth Cocaine Metabols Positive H U Cannabinoids Screen Positive H Assessment & Plan - Assessment and Plan (Free Text) Assessment: This is a 37M w/ hx of HCV, polysubstance abuse who presented to hospital for heroin overdose. Pt was found to have probable esophageal varicies on CT 1. Esophageal and gastric Varices on imaging 2. Chronic HCV 3. Splenomegaly 4. Thrombocytopenia Plan: -Continue supportive care -No active GI bleeding, H/H stable -Will need EGD for evaluation of variceal screening, plan for tomorrow, pt NPO after midnight -Order Abdominal US Doppler to r/o thrombus in setting of thrombocytopenia and splenomegaly -2d echo to evaluate for cardiac function -Pt will need to follow up out pt for chronic HCV -Advised complete alcohol abstinence and avoidance of heroine -Continue medical management as per primary team <Froylan Gallego - Last Filed: 09/09/17 14:53> Meds - Medications Medications: Current Medications Aspirin (Ecotrin) 81 mg PO DAILY [facility] Home Med (Home Med) 1 unit SL TID [facility] Sodium Chloride (Sodium Chloride 0.9%) 1,000 mls @ 100 mls/hr IV .Q10H [facility] Last Admin: 09/09/17 01:04 Dose: 100 mls/hr Naproxen (Anaprox Ds) 550 mg PO BID [facility] Pantoprazole Sodium (Protonix Ec Tab) 40 mg PO DAILY [facility] Results - Vital Signs Recent Vital Signs: Last Vital Signs Temp 97.3 F L 09/09/17 12:00 Pulse 55 L 09/09/17 12:00 Resp 20 09/09/17 12:00 BP 130/75 09/09/17 12:00 Pulse Ox 97 09/09/17 06:00 - Labs Result Diagrams: 09/08/17 23:10 09/08/17 23:10 Labs: Laboratory Results - last 24 hr 09/09/17 09/09/17 01:02 01:02 Urine Color Yellow Urine Appearance Clear Urine pH 6.0 Ur Specific [place] >= 1.030 Urine Protein Negative Urine Glucose (UA) Negative Urine Ketones Negative Urine Blood Negative Urine Nitrate Negative Urine Bilirubin Small H Urine Urobilinogen 1.0 H Ur Leukocyte Esterase Negative Urine Opiates Screen Positive H Urine Methadone Screen Negative Ur Barbiturates Screen Negative Ur Phencyclidine Scrn Negative Ur Amphetamines Screen Negative U Benzodiazepines Scrn Negative U Oth Cocaine Metabols Positive H U Cannabinoids Screen Positive H Attending/Attestation - Attestation I have personally seen and examined this patient.: Yes I have fully participated in the care of the patient.: Yes I have reviewed all pertinent clinical information: Yes Notes (Text): 09/09/17 14:51 37 year old male with h/o HCV, Heroin abuse admitted after drug overdose. He has signs of portal hypertension on imaging, but normal LFTs. Suspect prehepatic portal hypertension. Obtain abdominal US with dopplers of the PV/SV to eval for thrombus. Eval for schistosoma. Eval for chronic hep C. Will do EGD tomorrow to eval varices seen on abdominal imaging. Ok to treat chronic heroin addition with suboxone. Patient has normal lfts and synthetic function in the liver. No contraindication to treatment.
[2017-09-09] MEDS ORDERED: Influenza Vaccine 60 mcg/0.5 mL SYR (4YR UP) IM ONE (15:09)
[2017-09-09] MEDS ORDERED: Pneumococcal 23-Valent Vaccine IM ONE (15:09)
[2017-09-09] MEDS: Pantoprazole 40 mg EC Tab PO SCH (15:16)
[2017-09-09] MEDS: [UNRECOGNIZED DRUG - OTHER] SL SCH ×3 (15:22→20:36)
--- NOTE | 2017-09-09 16:39 | CARD ---
APPROVED REPORT EXAM: Two-dimensional and M-mode echocardiogram with Doppler and color Doppler. INDICATION 2D DIMENSIONS IVSd1.2 (0.7-1.1cm)LVDd5.7 (3.9-5.9cm) PWd1.1 (0.7-1.1cm)LVDs3.9 (2.5-4.0cm) FS (%) 30.9 %LVEF (%)57.8 (>50%) M-Mode DIMENSIONS Left Atrium (MM)3.90 (2.5-4.0cm)Aortic Root3.00 (2.2-3.7cm) Aortic Cusp Exc.2.20 (1.5-2.0cm) Aortic Valve AoV Peak Irahqioe423.0cm/Bernard Peak GR.15mmHg Mitral Valve MV E Ksiiyczi981.0cm/sMV A Occeuruh41.8cm/sE/A ratio2.0 TDI Lateral E' Peak V18.30cm/sMedial E' Peak V13.00cm/sE/Lateral E'6.1 E/Medial E'8.6 Tricuspid Valve TR Peak Kflpekzi950gl/sRAP [id number] Peak Gr.24mmHg [id number] LEFT VENTRICLE The Left Ventricle is borderline dilated. There is borderline to mild concentric left ventricular hypertrophy. The left ventricular function is normal.EF-55% There is normal LV segmental wall motion. Transmitral Doppler flow pattern is Grade III-reversible restrictive diastolic dysfunction. No left ventricle thrombus noted on this study. There is no ventricular septal defect visualized. There is no left ventricular aneurysm. There is no mass noted in the left ventricle. RIGHT VENTRICLE The right ventricle is normal size. There is normal right ventricular wall thickness. The right ventricular systolic function is normal. ATRIA The left atrium is borderline dilated. The right atrium size is normal. The interatrial septum is intact with no evidence for an atrial septal defect. AORTIC VALVE The aortic valve is thickened but opens well. There is trace aortic regurgitation. There is no aortic valvular stenosis. There is no aortic valvular vegetation. MITRAL VALVE The mitral valve is thickened but opens well. Mitral regurgitation is trace. There is no mitral valve stenosis. There is no evidence of mitral valve prolapse. TRICUSPID VALVE The tricuspid valve leaflets are thickened , but open well. There is trace tricuspid regurgitation.RVSP-34 mmof Hg. There is no tricuspid valve stenosis. There is no tricuspid valve prolapse or vegetation. PULMONIC VALVE The pulmonary valve is normal in structure. There is trace pulmonic valvular regurgitation. There is no pulmonic valvular stenosis. GREAT VESSELS The aortic root is normal in size. The ascending aorta is normal in size. The pulmonary artery is normal. The IVC is normal in size and collapses >50% with inspiration. PERICARDIAL EFFUSION There is no pleural effusion. There is no pericardial effusion. <Conclusion> The Left Ventricle is borderline dilated. There is borderline to mild concentric left ventricular hypertrophy. The left ventricular function is normal.EF-55% There is trace AR/MR/PI/TR. RVSP-34 mmof Hg. No vegetation or thrombus noted.
[2017-09-09] MEDS: Naproxen 550 mg Tab PO SCH (18:29)
[2017-09-09] MEDS ORDERED: Sodium Chloride 0.9% 1,000 ML IV SCH (20:05)
--- NOTE | 2017-09-09 21:38 | US ---
PROCEDURE: Portal vein duplex ultrasound. CLINICAL HISTORY: Cirrhosis. Deteriorating liver function. Evaluate for portal vein thrombosis. PHYSICIAN(S): Carlos Coley M.D. FINDINGS: The extrahepatic portal vein is patent with hepatopetal flow. No sonographic evidence for thrombus or obstruction is seen. The 3 hepatic veins are visualized centrally and patent. The hepatic artery is patent. The spleen is enlarged. No ascites is appreciated in the upper abdomen. IMPRESSION: 1. Patent portal vein with hepatopetal flow.
--- NOTE | 2017-09-09 22:40 | CP.PCM.PN ---
Subjective - Date & Time of Evaluation Date of Evaluation: 09/09/17 Time of Evaluation: 22:34 - Subjective Subjective: Patient was seen at bedside. He complains of bodyaches, restlessness, both legs are jumping. Had received toradol and valium earlier which helped him. Has no other complaints. Denies chest pain, sob, nausea , sweating , palpitations. Medical record was reviewed. Nurse called me to see patient because ruling technician found to have sinus bradycardia and Mobitz type I block on rhythm strip. Objective - Vital Signs/Intake and Output Vital Signs (last 24 hours): Temp Pulse Resp BP Pulse Ox 97.3 F L 49 L 20 123/61 99 09/09/17 17:23 09/09/17 18:00 09/09/17 17:23 09/09/17 17:23 09/09/17 17:23 Intake and Output: 09/09/17 09/10/17 18:59 06:59 Intake Total 0 Balance 0 - Medications Medications: Current Medications Aspirin (Ecotrin) 81 mg PO DAILY [facility] Gabapentin (Neurontin) 300 mg PO BID [facility] PRN Reason: Protocol Last Admin: 09/09/17 20:04 Dose: 300 mg Home Med (Home Med) 1 unit SL TID [facility] Last Admin: 09/09/17 20:36 Dose: 1 unit Sodium Chloride (Sodium Chloride 0.9%) 1,000 mls @ 100 mls/hr IV .Q10H [facility] Last Admin: 09/09/17 15:23 Dose: 100 mls/hr Ketorolac Tromethamine (Toradol) 30 mg IVP Q8H PRN PRN Reason: Pain, moderate (4-7) Last Admin: 09/09/17 20:34 Dose: 30 mg Naproxen (Anaprox Ds) 550 mg PO BID [facility] Last Admin: 09/09/17 18:29 Dose: 550 mg Pantoprazole Sodium (Protonix Ec Tab) 40 mg PO DAILY [facility] Last Admin: 09/09/17 15:16 Dose: 40 mg - Labs Labs: PT 12.6 SECONDS (9.4-12.5) H 09/08/17 23:10 INR 1.10 (0.93-1.08) H 09/08/17 23:10 APTT 22.5 Seconds (25.1-36.5) L 09/08/17 23:10 Most Recent Lab Values WBC 3.4 10^3/ul (4.5-11.0) L 09/08/17 23:10 RBC 5.21 10^6/uL (3.5-6.1) 09/08/17 23:10 Hgb 12.5 g/dL (14.0-18.0) L 09/08/17 23:10 Hct 39.4 % (42.0-52.0) L 09/08/17 23:10 MCV 75.6 fl (80.0-105.0) L 09/08/17 23:10 MCH 24.0 pg (25.0-35.0) L 09/08/17 23:10 MCHC 31.7 g/dl (31.0-37.0) 09/08/17 23:10 RDW 15.1 % (11.5-14.5) H 09/08/17 23:10 Plt Count 71 10^3/uL (120.0-450.0) L 09/08/17 23:10 MPV 9.4 fl (7.0-11.0) 09/08/17 23:10 Gran % 56.2 % (50.0-68.0) 09/08/17 23:10 Lymph % (Auto) 30.3 % (22.0-35.0) 09/08/17 23:10 [place] % (Auto) 12.0 % (1.0-6.0) H 09/08/17 23:10 Eos % (Auto) 1.2 % (1.5-5.0) L 09/08/17 23:10 Baso % (Auto) 0.3 % (0.0-3.0) 09/08/17 23:10 Gran # 1.93 (1.4-6.5) 09/08/17 23:10 Lymph # (Auto) 1.0 (1.2-3.4) L 09/08/17 23:10 [place] # (Auto) 0.4 (0.1-0.6) 09/08/17 23:10 Eos # (Auto) 0.0 (0.0-0.7) 09/08/17 23:10 Baso # (Auto) 0.01 K/mm3 (0.0-2.0) 09/08/17 23:10 PT 12.6 SECONDS (9.4-12.5) H 09/08/17 23:10 INR 1.10 (0.93-1.08) H 09/08/17 23:10 APTT 22.5 Seconds (25.1-36.5) L 09/08/17 23:10 pO2 168 mm/Hg (30-55) H 09/08/17 23:10 VBG pH 7.39 (7.32-7.43) 09/08/17 23:10 VBG pCO2 55.0 (40-60) 09/08/17 23:10 VBG HCO3 33.3 mmol/l (21-28) H 09/08/17 23:10 VBG Total CO2 35.0 mmol.L (22-28) H 09/08/17 23:10 VBG O2 Sat (Calc) 99.0 % (40-65) H 09/08/17 23:10 VBG Base Excess 6.7 mmol/L (0.0-2.0) H 09/08/17 23:10 VBG Potassium 4.1 mmol/L (3.6-5.2) 09/08/17 23:10 Sodium 139.0 mmol/L (132-148) 09/08/17 23:10 Chloride 106.0 mmol/L (98-107) 09/08/17 23:10 Glucose 91 mg/dl (75-110) 09/08/17 23:10 Lactate 0.7 mmol/L (0.7-2.1) 09/08/17 23:10 FiO2 21.0 % 09/08/17 23:10 Sodium 143 mmol/L (132-148) 09/08/17 23:10 Potassium 4.2 mmol/L (3.6-5.0) 09/08/17 23:10 Chloride 103 mmol/L (98-107) 09/08/17 23:10 Carbon Dioxide 29 mmol/L (21-33) 09/08/17 23:10 Anion Gap 14 (10-20) 09/08/17 23:10 BUN 16 mg/dL (7-21) 09/08/17 23:10 Creatinine 1.0 mg/dl (0.8-1.5) 09/08/17 23:10 Est GFR ( Amer) > 60 09/08/17 23:10 Est GFR (Non-Af Amer) > 60 09/08/17 23:10 Random Glucose 90 mg/dL (70-110) 09/08/17 23:10 Calcium 9.5 mg/dL (8.4-10.5) 09/08/17 23:10 Magnesium 2.1 mg/dL (1.7-2.2) 09/08/17 23:10 Total Bilirubin 0.4 mg/dL (0.2-1.3) 09/08/17 23:10 AST 31 U/L (17-59) 09/08/17 23:10 ALT 38 U/L (7-56) 09/08/17 23:10 Alkaline Phosphatase 51 U/L (38-126) 09/08/17 23:10 Lactate Dehydrogenase 457 U/L (333-699) 09/08/17 23:10 Total Creatine Kinase 233 U/L (35-230) H 09/08/17 23:10 CK-MB (CK-2) 2.7 ng/mL (0.0-3.6) 09/08/17 23:10 CK-MB (CK-2) % Cancelled 09/08/17 23:10 Troponin I < 0.01 ng/mL 09/08/17 23:10 NT-Pro-B Natriuret Pep 118 pg/mL (0-450) 09/08/17 23:10 Total Protein 7.3 g/dL (5.8-8.3) 09/08/17 23:10 Albumin 3.8 g/dL (3.0-4.8) 09/08/17 23:10 Globulin 3.5 gm/dL 09/08/17 23:10 Albumin/Globulin Ratio 1.1 (1.1-1.8) 09/08/17 23:10 Venous Blood Potassium 4.1 mmol/L (3.6-5.2) 09/08/17 23:10 Urine Color Yellow (YELLOW) 09/09/17 01:02 Urine Appearance Clear (CLEAR) 09/09/17 01:02 Urine pH 6.0 (4.7-8.0) 09/09/17 01:02 Ur Specific [place] >= 1.030 (1.005-1.035) 09/09/17 01:02 Urine Protein Negative mg/dL (<30 mg/dL) 09/09/17 01:02 Urine Glucose (UA) Negative mg/dL (NEGATIVE) 09/09/17 01:02 Urine Ketones Negative mg/dL (NEGATIVE) 09/09/17 01:02 Urine Blood Negative (NEGATIVE) 09/09/17 01:02 Urine Nitrate Negative (NEGATIVE) 09/09/17 01:02 Urine Bilirubin Small (NEGATIVE) H 09/09/17 01:02 Urine Urobilinogen 1.0 E.U./dL (<1 E.U./dL) H 09/09/17 01:02 Ur Leukocyte Esterase Negative Randy/uL (NEGATIVE) 09/09/17 01:02 Urine Opiates Screen Positive (NEGATIVE) H 09/09/17 01:02 Urine Methadone Screen Negative (NEGATIVE) 09/09/17 01:02 Ur Barbiturates Screen Negative (NEGATIVE) 09/09/17 01:02 Ur Phencyclidine Scrn Negative (NEGATIVE) 09/09/17 01:02 Ur Amphetamines Screen Negative (NEGATIVE) 09/09/17 01:02 U Benzodiazepines Scrn Negative (NEGATIVE) 09/09/17 01:02 U Oth Cocaine Metabols Positive (NEGATIVE) H 09/09/17 01:02 U Cannabinoids Screen Positive (NEGATIVE) H 09/09/17 01:02 Influenza Typ A,B (EIA) Negative for flu a/b (NEGATIVE) 09/08/17 23:10 - Constitutional Appears: Well Assessment and Plan - Assessment and Plan (Free Text) Assessment: Cocaine/Heroine/marijuana withdrawal. Sinus bradycardia. Mobitz type I block. Borderline anemia. Thrombocytopenia. Elevated creatine kinase level. Plan: Toradol 30 mg IV x 1. Valium 5 mg PO x 1. EKG stat------------>Sinus bradycardia. No acute st t changes. Troponin stat. EKG , troponin in AM x 2. Observation. Awaiting cardiology consult.
[2017-09-10 06:14] VITALS: BP 140/77; TEMP 97; O2SAT 98
[2017-09-10 07:03] LABS: HEMOGLOBIN 12.7 g/dL (14.0-18.0); MEAN CELL VOLUME 75.1 fl (80.0-105.0); MEAN CORPUSCULAR HEMOGLOBIN 23.8 pg (25.0-35.0); MEAN CORPUSCULAR HGB CONC 31.7 g/dl (31.0-37.0); MEAN PLATELET VOLUME 8.9 fl (7.0-11.0); RBC 5.34 10^6/uL (3.5-6.1); RED CELL DISTRIBUTION WIDTH 15.1 % (11.5-14.5); WHITE BLOOD COUNT 3.1 10^3/ul (4.5-11.0)
[2017-09-10 07:21] LABS: INR 1.12 (0.93-1.08); PROTHROMBIN TIME 12.9 SECONDS (9.4-12.5)
[2017-09-10 07:24] LABS: TROPONIN I < 0.01 ng/mL
[2017-09-10 07:40] LABS: LDL CHOLESTEROL 56 mg/dL (0-129)
[2017-09-10 07:42] LABS: ALBUMIN 3.2 g/dL (3.0-4.8); ALT/SGPT 24 U/L (7-56); AST/SGOT 24 U/L (17-59); BLOOD UREA NITROGEN 18 mg/dL (7-21); CALCIUM 9.3 mg/dL (8.4-10.5); GFR AFRICAN-AMERICAN > 60; GFR NON-AFRICAN AMERICAN > 60; HDL CHOLESTEROL 29 mg/dL (29-60)
[2017-09-10] MEDS: [UNRECOGNIZED DRUG - OTHER] SL SCH ×2 (08:16→11:35)
[2017-09-10] MEDS: Sodium Chloride 0.9% 1,000 ML IV SCH ×2 (08:18→11:37)
--- NOTE | 2017-09-10 08:42 | CP.PCM.PN ---
Subjective - Date & Time of Evaluation Date of Evaluation: 09/10/17 Time of Evaluation: 08:39 - Subjective Subjective: Surgery: Dr. Olguin Pt seen and examined. Resting comfortably in bed. Still has pain at hernia site , but it is improved. Objective - Vital Signs/Intake and Output Vital Signs (last 24 hours): Temp Pulse Resp BP Pulse Ox 97.0 F L 46 L 20 140/77 98 09/10/17 06:00 09/10/17 06:00 09/10/17 06:00 09/10/17 06:00 09/10/17 06:00 Intake and Output: 09/10/17 09/10/17 06:59 18:59 Intake Total 2019 Balance 2019 - Medications Medications: Current Medications Aspirin (Ecotrin) 81 mg PO DAILY [facility] Gabapentin (Neurontin) 300 mg PO BID [facility] PRN Reason: Protocol Last Admin: 09/09/17 20:04 Dose: 300 mg Home Med (Home Med) 1 unit SL TID [facility] Last Admin: 09/10/17 08:16 Dose: 1 unit Sodium Chloride (Sodium Chloride 0.9%) 1,000 mls @ 100 mls/hr IV .Q10H [facility] Ketorolac Tromethamine (Toradol) 30 mg IVP Q8H PRN PRN Reason: Pain, moderate (4-7) Last Admin: 09/10/17 07:07 Dose: 30 mg Naproxen (Anaprox Ds) 550 mg PO BID [facility] Last Admin: 09/09/17 18:29 Dose: 550 mg Pantoprazole Sodium (Protonix Ec Tab) 40 mg PO DAILY [facility] Last Admin: 09/09/17 15:16 Dose: 40 mg Zolpidem Tartrate (Ambien) 10 mg PO HS PRN; Protocol PRN Reason: Insomnia - Labs Labs: 09/10/17 06:15 09/10/17 06:15 PT 12.9 SECONDS (9.4-12.5) H 09/10/17 06:15 INR 1.12 (0.93-1.08) H 09/10/17 06:15 APTT 22.5 Seconds (25.1-36.5) L 09/08/17 23:10 - Constitutional Appears: Non-toxic, No Acute Distress - Head Exam Head Exam: ATRAUMATIC, NORMOCEPHALIC - Eye Exam Eye Exam: EOMI Pupil Exam: NORMAL ACCOMODATION - ENT Exam ENT Exam: Mucous Membranes Moist - Neck Exam Neck Exam: Full ROM - Respiratory Exam Respiratory Exam: NORMAL BREATHING PATTERN. absent: Accessory Muscle Use, Respiratory Distress - GI/Abdominal Exam GI & Abdominal Exam: Soft, Tenderness (R hernia), Hernia (R inguinal, reducible) . absent: Distended, Firm, Guarding, Rigid, Rebound - Extremities Exam Extremities Exam: absent: Calf Tenderness, Pedal Edema - Neurological Exam Neurological Exam: Alert, Awake, Oriented x3 - Skin Skin Exam: Normal Color, Warm Assessment and Plan - Assessment and Plan (Free Text) Assessment: 37M w. hx of IVDA w. R inguinal hernia -ECHO negative for vegetations -Final blood Cx pending, if negative will tentatively plan for OR on Saturday 09/16 -Pt may be D/C from surgical stand point and return Saturday through Same Day Surgery -d/w attending Zemaitis PGY3
--- NOTE | 2017-09-10 08:43 | CON ---
DATE: 09/09/2017 LOCATION: Patient in room 373, bed 2. REASON FOR CONSULTATION: Chest pain. HISTORY OF PRESENT ILLNESS: A 37-year-old male patient who was in ICU for bradycardia after using heroin and cocaine, signed out yesterday and went home and injected drug cocaine and heroin again and came back with left-sided chest pain. Chest pain is localized to a point on the left lower chest and he also says that this gets worse by moving [id number] or trying to take a deep breath - it hurts at the same localized point, without any radiation. No diaphoresis, no relation to exertion, only relation is to the local tenderness and deep breath and moving [id number]. Patient denies any shortness of breath, nausea, vomiting. Patient also found to have inguinal hernia and seen by Surgery by Dr. Olguin. PAST MEDICAL HISTORY: Significant for hepatitis C, one kidney is atrophic and patient has cocaine and heroin abuse. MEDICATIONS AT HOME: Patient does not take any medications at home, but he has heroin and cocaine abuse. PERSONAL HISTORY: Smokes two packs of cigarettes and active use of heroin and cocaine. He signed out from the hospital yesterday and took cocaine and heroin and came back. FAMILY HISTORY: Significant for cancer and cardiac condition. ALLERGIES: PATIENT SAYS HE IS ALLERGIC TO IODINE. REVIEW OF SYSTEMS: All the systems reviewed, positives mentioned in the history, others were negative. PHYSICAL EXAMINATION: VITAL SIGNS: Blood pressure 130/75, respirations 20, pulse 55, temperature 97.3. HEENT: Head is normocephalic. Eyes: Pupils normal. Conjunctivae normal. Nose and throat: Normal. NECK: JVP low. Carotids equal. THORAX: Patient has tenderness on the left lower chest at a localized point. LUNGS: Clear. CARDIOVASCULAR: S1, S2. ABDOMEN: Soft. No organomegaly. Bowel sounds normal. EXTREMITIES: No clubbing, no cyanosis. LABORATORY DATA: WBC 3.4, hemoglobin 12.5, hematocrit 39.4, platelets 71. Sodium 143, potassium 4.2, BUN 16, creatinine 1.0. AST and ALT normal. Troponin x2 negative. EKG on 09/08 showed normal sinus rhythm, normal EKG. Chest x-ray on 09/08: Clear lungs, cardiovascular normal. Abdominal and pelvic CT scan on 09/08 showed mild amount of pelvic free fluid, right inguinal hernia containing fat and fluid similarly in appearance as compared to prior CT scans. Incidental finding of sub-centimeter pulmonary nodules. DIAGNOSES: Chest pain, musculoskeletal; heroin and cocaine abuse; hepatitis C; history of atrophic left kidney; anemia; thrombocytopenia and leukopenia. PLAN: Patient's pain is musculoskeletal, so we are going to order echocardiogram. Otherwise patient will be treated symptomatically with Naprosyn and Protonix and from cardiac point, if the patient needs surgery for hernia, he can go as a moderate risk and I discussed this with the certified surgical assistant and informed him that from cardiac point of view, if hernia surgery needed, he can have surgery at moderate risk. We will continue to follow with you. Told patient to stop heroin and cocaine abuse and stop smoking. We will follow. Debby Masterson MD
--- NOTE | 2017-09-10 09:18 | CT ---
PROCEDURE: CT HEAD WITHOUT CONTRAST. HISTORY: sever sinus bradycardia, dizziness COMPARISON: None available. TECHNIQUE: Axial computed tomography images were obtained through the head/brain without intravenous contrast. Radiation dose: Total exam DLP = 1122 mGy-cm. This CT exam was performed using one or more of the following dose reduction techniques: Automated exposure control, adjustment of the mA and/or kV according to patient size, and/or use of iterative reconstruction technique. FINDINGS: HEMORRHAGE: No intracranial hemorrhage. BRAIN: No mass effect or edema. No atrophy or chronic microvascular ischemic changes. VENTRICLES: Unremarkable. No hydrocephalus. CALVARIUM: Unremarkable. PARANASAL SINUSES: Unremarkable as visualized. No significant inflammatory changes. MASTOID AIR CELLS: Unremarkable as visualized. No inflammatory changes. OTHER FINDINGS: None. IMPRESSION: No acute findings
[2017-09-10 11:30] VITALS: PULSE 50
[2017-09-10] MEDS: Naproxen 550 mg Tab PO SCH (11:35)
[2017-09-10] MEDS: Pantoprazole 40 mg EC Tab PO SCH (11:36)
--- NOTE | 2017-09-10 12:08 | CP.PCM.PCO ---
Physician Communication Note - Physician Communication Note Physician Communication Note: Patient eloped before being seen by Psychiatry.
--- NOTE | 2017-09-10 13:14 | PN ---
DATE: 09/10/2017 LOCATION: Patient in room 373, bed 2. REASON FOR CONSULTATION: Chest pain. The patient is a 37-year-old male who was admitted with left lower chest pain that is localized to a point with local tenderness. The patient has a known history of hepatitis C and atrophic left kidney and the patient one day before admission was in ICU for bradycardia and then, he signed out and went home and took heroin and cocaine and came back with chest pain, which is localized and with local tenderness with musculoskeletal pain. I put patient yesterday on Naprosyn and Protonix. The patient's chest pain and tenderness are much better. SUBJECTIVE: The patient's chest pain and tenderness has improved. The patient has no shortness of breath, no palpitation. PHYSICAL EXAMINATION VITAL SIGNS: Blood pressure 130/88, respirations 20, pulse 60, temperature 98.9. While examining, the patient's pulse was 56. HEENT: Head is normocephalic. Eyes, pupils are normal. Conjunctivae slightly pale. NECK: JVP low. Carotids, equal. THORAX: AP diameter normal. LUNGS: Clear. CARDIOVASCULAR: S1 and S2. CHEST WALL: Localized tenderness and area of pain, which has been much reduced as compared to yesterday. ABDOMEN: Soft. No organomegaly. Bowel sounds normal. EXTREMITIES: No clubbing, no cyanosis. LABORATORY DATA: WBC 3.1; hemoglobin 12.7; hematocrit 40.1; platelets 157,000, yesterday platelets were 71,000. Sodium 145, potassium 3.9, BUN 18, creatinine 1.1. AST and ALT normal. Troponin x2 negative. TSH 1.02, normal. Total protein and albumin normal. Prothrombin time 12.9, INR 1.12, PTT 22.5. DIAGNOSES: Chest pain, musculoskeletal; heroin and cocaine addiction; atrophic left kidney; hepatitis C; heavy smoker. PLAN: In my yesterday's consult, my impression was chest pain, musculoskeletal; so, patient if need any surgery or any GI procedure, from cardiac point of view he can undergo that as moderate risk. The patient also has anemia, leukopenia. Yesterday's count showed thrombocytopenia, but today's platelet count is normal. Advised patient to not to smoke and stop taking cocaine and heroin. The patient is on Naprosyn 550 b.i.d. along with Protonix 40 mg daily. The patient is also getting Neurontin 300 mg b.i.d, aspirin 81 mg daily. He is getting IV fluid therapy. We will follow. Debby Masterson MD
[2017-09-10 17:04] LABS: LYME IGM NEGATIVE (NEGATIVE)
[2017-09-10 17:06] LABS: LYME IGG NEGATIVE (NEGATIVE)
--- NOTE | 2017-09-10 18:27 | HP ---
DATE OF EXAM: HISTORY OF PRESENT ILLNESS: The patient came in with intermittent chest pain. He also complained about his inguinal pain. The patient has been in the ICU and has left his medications that he is supposed to be started Suboxone at home. He left, came back, the patient presented with syncope, unresponsiveness and admitted to ICU. On the floor, he went into Mobitz 1 with gasping breathing and unresponsiveness again, was sent to the ICU overnight and in the morning, the patient signed AMA and came back because I contacted the patient, advised him to go back for continuation of his evaluations. The patient was not seen yet by it risk and assurance senior manager. At that time, GI recommended the patient should have an endoscopy because of the gastric and splenic varices. On prior CT, the patient also had a bradycardia with heart block and advised to be readmitted and to bring his Suboxone for continuation of therapy as has been prescribed before he get into overdose. The patient has also seen his psychiatrist, there is no depression; however, first psychiatric evaluation may be needed. At this time, the patient has chest pain intermittently, he is so dizzy, came to the ER for further evaluation. He does have inguinal hernias that bother him more so intermittently with pain, but there is no nausea and there is no vomiting. Please see history and physical dated for 09/09/2017. PAST MEDICAL HISTORY: The patient has atrophic kidney. He has one kidney working fine. He does have as I mentioned above gastric varices and esophageal varices, etiology unclear. The patient cannot get CT with contrast because of the [place] ALLERGY. He does have used IV heroin injecting himself with heroin and cocaine and marijuana substance abuse. The patient has no other medical history. ALLERGIES: I MENTIONED, IODINE, SHELLFISH, CT CONTRAST. FAMILY HISTORY: His father has pancreatic cancer, he has COPD. He has coronary artery disease, ischemic cardiomyopathy and 2 uncles have coronary artery disease, one of them at age 50, two more uncles of them have stents in the coronaries. REVIEW OF SYSTEMS: The patient really does not give us much except associated sometimes dizziness, inguinal area pain, he has irritability and insomnia associated and he is being treating himself with heroin to prevent withdrawal pain; otherwise, the patient wants to withdraw the heroin. PHYSICAL EXAMINATION VITAL SIGNS: On admission, temperature is 97.3; heart rate goes to 61, sometimes will deteriorate in the 40 range, blood pressure 123/61; respirations 20; saturating good at 99%. HEAD AND NECK: Normal. No JVD. CHEST: Clear bilateral. CARDIAC: First sound and second sound normal. No murmur, rub or gallop. ABDOMEN: Soft. There is always inguinal fullness and minimal tenderness. EXTREMITIES: There is no edema. NEUROLOGICAL: Normal. LABORATORY DATA: His laboratory when he came in, his white count was 3.1, hemoglobin 12.7, hematocrit 40.1 and platelets were initially reported 71,000 and repeated manually was 167,000. Chemistry: Sodium 143, potassium 4.2, chloride 103, bicarbonate 29, BUN 16, creatinine 1. Liver function test is normal. Total CPK 233. Troponin is negative. Total protein 7.3, albumin 3.8, globulin 3.5. Chest x-ray, no active disease. EKG, normal sinus rhythm. IMPRESSION AND PLAN 1. The patient has cardiac arrhythmias. We will admit the patient to Telemetry, Cardiology consult, need an echocardiogram, he may need a Holter. Etiology of his bradycardia unclear, may be has to do his drug use or intrinsic conductive disease. We should consider hypothyroidism, Lyme disease or increased intracranial pressure. We will discuss result with the Cardiology. He may need a Holter monitor as outpatient. 2. 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 The patient does have chronic hepatitis C. Continuation of GI consult has been ordered while first admission, follow up on that. He may need an endoscopy; he does have anemia, thrombocytopenia and low white count. 3. Substance abuse. The patient did get started on Subutex and he will be followed up as outpatient for Subutex injection once a month and the patient planned to be off these drugs and take care of his health issues and Psychiatric consult will be ordered for underlying depression or suicidal or any underlying psychiatric illness. We will continue current therapy. We will continue IV fluids for now. We will follow up recommendations by Cardiology as well as Gastroenterology, awaiting for Psychiatry to see and continue current therapy for now. Humberto Johnson MD [facility] # [id number]
--- NOTE | 2017-09-10 21:16 | CARD ---
APPROVED REPORT EKG Measurement Heart [id number] <Conclusion> Marked sinus bradycardia Abnormal ECG
--- NOTE | 2017-09-12 08:51 | DS ---
HISTORY OF PRESENT ILLNESS: A 37-year-old male with history of heroin use, substance abuse, has been admitted for chest pain and cardiac evaluation. While there, he was getting his Suboxone; however, the patient did have a problem with the Suboxone and he had body aches and he left from the hospital against medical advice. During hospitalization, he was given IV fluid, he was given Toradol, IV Protonix; seen by GI consult, Dr. Galeano, who was supposed to do upper endoscopy; however, the patient did not do this because he left. Also, seen by Cardiology and had an echocardiogram, which showed good LV function, LVH with dilated left ventricle. There is no valvular disease in the echo and seems stable cardiac jose; however, showed the patient does have first-degree block, has Mobitz I and need to be further reevaluated. He also gets bradycardia up to 30-35-40. No symptoms reported with the bradycardia; however, we will follow that. The patient should get stress test to see how his heart rate goes up with exercise appropriately; otherwise, he may have chronic renal disease and may get some syncope while exertion because his heart rate will not go up with exercise and exertions. We will further evaluate this if the patient follows up in the office. The patient also had cardiac enzymes. EKG was normal and had head CT while he was there. The CAT scan of the head showed no acute findings and the ventricle unremarkable, no hydrocephalus; mastoid cells shows no inflammation. Paranasal sinus is unremarkable and there is no finding to explain the patient's bradycardia from the neurologic point of view at this time. The patient also as I mentioned had an echocardiogram which shows an EF of 55%. He also had abdominal ultrasound, which shows patent portal vein with hepatopetal flow. There are no occlusions, no thrombus. He also previously had a CT and ultrasound, there is no evidence of cirrhosis at this time. Though as one finding in the past shows a CT showed some gastric varices and splenic varices, we had a CT here done without contrast because the patient is ALLERGIC TO CONTRAST which shows small amount of pelvic free fluid. It is an abnormal finding in a male, it is of uncertain etiology. Right inguinal hernia containing fat and fluid, similar in appearance to prior CT, subcentimeter pulmonary nodule and should be followed up as an outpatient. The patient is a smoker for over 20 years and we should follow up serial CT scans. The patient also had the liver which was no acute abnormality identified; gallbladder, no evidence of acute cholecystitis or obstructions or dilation. CT scan, no evidence of acute pancreatitis. Spleen shows no acute abnormalities of the spleen identified and adrenal glands was normal. Kidnies and ureter, stable appearance of marked atrophy and scarring of the left kidney that is chronic. No evidence of hydronephrosis noted. Appendix normal and bladder shows no acute inflammation. The patient is stable regarding this. The patient was contacted and advised to stay in for further evaluation; however, he left the hospital against medical advice. EKG also showed sinus rhythm, no acute ST-T elevation, no heart block on regular EKG. PHYSICAL EXAMINATION VITAL SIGNS: On discharge, temperature 97, heart rate 46, blood pressure 140/77, respirations 20, saturations 98%. HEAD AND NECK: Exam normal. No JVD, no thyromegaly. CHEST: Clear. CARDIAC: First sound and second sound normal. ABDOMEN: Soft. Nontender. EXTREMITIES: No edema. NEUROLOGIC: Normal. LABORATORY DATA: Shows white count 3.1, hemoglobin 12.7, hematocrit 40.1, platelets is 167,000 which is normal. Chemistry shows sodium 145, potassium 3.9, chloride 111, bicarbonate 24, BUN 18, creatinine 1.1. Liver function test is normal. The patient also had cholesterol test which showed LDL is 104, HDL 56, triglyceride is normal at 66. The patient also had TSH, which was normal at 1.02. The patient had troponin x2, which was negative and liver enzyme is normal. The patient had also hemoglobin A1c, which was 5.4. I did discuss with the GI consult on the case. He does not have any contraindication using Suboxone injections once a month 300 mg for his conditions from his gastrointestinal view, his liver is stable, his enzymes are normal, liver looks normal. There is no portal vein thrombosis and the patient will be treated with Subutex injection once a month and hopefully, he will agree and if he is stable and out of this drug abuse and abstinence from IV injections and heroin, in six months he may be eligible for treatment of his chronic hepatitis C. DISCHARGE DIAGNOSES 1. Heroin abuse with acute overdose. 2. Polysubstance abuse with using heroin 15 bags to 20 with Klonopin 2 mg 2 tablets, which put him in respiratory failure, almost the patient , he got agonal breathing and bradycardia with Mobitz I and II. 3. Bradycardia, we may need cardiac followup and stress test. 4. Chronic hepatitis C. PLAN: Advise the patient to follow up in the office for Subutex, may be Suboxone is too weak due to naloxone which may make his withdrawal not passing smoothly, may be we will consider Subutex tablets for him with Ativan 1 mg for helping him with his anxiety and restlessness in addition to may be Neurontin will help him at night and with the pain associated with that in addition to ibuprofen if needed, could not give clonidine to the patient because of his extreme bradycardia in the range of 30 and blood pressure was in the IV fluid on 150 mL per hour. At this time, we will follow up the patient as an outpatient. We will contact him and we will follow the above recommendations. The patient is seen by psychiatrist and detox has been recommended. He is stable. He does not have any suicidal ideations. He does not have any depression or any underlying psychiatric illness. The patient seems willing to accept detox and maintenance of treatments for addictions and he is willing to that. However, we will continue to follow up with the patient and we will follow up psychiatric recommendations. Humberto Johnson MD
[2017-09-14 20:16] LABS: SCHISTOSOMA AB <1.00
== END 2017-09-10 11:41 | disposition left against medical advice (07) ==
LOC: ED 21:58 → ERH 09-09 00:16 → 3RSO 09-09 02:03
PROVIDERS: ADMIT Internal Medicine; ATTEND Internal Medicine
DX: I44.1 Atrioventricular block, second degree (principal); T40.1X1A Poisoning by heroin, accidental (unintentional), initial encounter; R07.89 Other chest pain; R00.1 Bradycardia, unspecified; N26.1 Atrophy of kidney (terminal); F14.23 Cocaine dependence with withdrawal; F11.23 Opioid dependence with withdrawal; F12.288 Cannabis dependence with other cannabis-induced disorder; B18.2 Chronic viral hepatitis C; D69.6 Thrombocytopenia, unspecified; I85.00 Esophageal varices without bleeding; I86.4 Gastric varices; I86.8 Varicose veins of other specified sites; K40.90 Unilateral inguinal hernia, without obstruction or gangrene, not specified as recurrent; D64.9 Anemia, unspecified; F17.210 Nicotine dependence, cigarettes, uncomplicated; Z23 Encounter for immunization; Z82.49 Family history of ischemic heart disease and other diseases of the circulatory system; Z80.0 Family history of malignant neoplasm of digestive organs; Z91.041 Radiographic dye allergy status
CPT/HCPCS: 36415; 70450; 71045; 74176; 76700; 80053; 80061; 80324; 80345; 80346; 80349; 80353; 80358; 80361; 81003; 82550; 82553; 82803; 83036; 83615; 83735; 83880; 83992; 84443; 84484; 85025; 85027; 85610; 85730; 86618; 86682; 87040; 87086; 87804; 90471; 90674; 90732; 93005; 93306; 96374; 96376; 99285; G0378; J1885; J7040

== ENCOUNTER 2017-12-11 22:58 | Emergency (ER) | payer OTHER ==
[2017-12-11 22:58] VITALS: BMI 32.5
--- NOTE | 2017-12-11 23:30 | ED PDOC ---
Arrival/HPI - General Time Seen by Provider: 12/11/17 23:24 Historian: Patient - History of Present Illness Narrative History of Present Illness (Text): 12/11/17 23:30 Angel Gutierrez is a 37 year old male, whose past medical history include atrophic kidney, hepatitis C, right inguinal hernia, and substance abuse, who presents to the Emergency department complaining of right groin pain for past few days. Patient reports he has a history of right inguinal hernia, which he tried to reduce himself, but states pain has been worsening. Patient denies any fever, chills, chest pain, shortness of breath, nausea, vomiting, diarrhea, urinary symptoms, headache, dizziness, or any other complaints. Symptom Onset: Gradual Symptom Course: Unchanged Activities at Onset: Light Context: Home Past Medical History - Provider Review Nursing Documentation Reviewed: Yes - Infectious Disease Hx of Infectious Diseases: None - Cardiac Hx Cardiac Disorders: No - Pulmonary Hx Respiratory Disorders: No - Neurological Hx Neurological Disorder: Yes Hx Dizziness: Yes (on and off) - HEENT Hx HEENT Disorder: No - Renal Hx Renal Disorder: Yes Other/Comment: Right Kidney Atrophy - Endocrine/Metabolic Hx Endocrine Disorders: No - Hematological/Oncological Hx Blood Disorders: Yes Hx Hepatitis C: Yes - Integumentary Hx Dermatological Disorder: Yes - Musculoskeletal/Rheumatological Hx Musculoskeletal Disorders: No Hx Falls: No - Gastrointestinal Hx Gastrointestinal Disorders: No - Genitourinary/Gynecological Hx Genitourinary Disorders: No - Psychiatric Hx Psychophysiologic Disorder: Yes Hx Anxiety: Yes Hx Substance Use: Yes (Heroin use (40-50)) - Surgical History Other/Comment: Tonsillectomy - Anesthesia Hx Anesthesia: No Hx Anesthesia Reactions: No Hx Malignant Hyperthermia: No - Suicidal Assessment Feels Threatened In Home Enviroment: No Family/Social History - Physician Review Nursing Documentation Reviewed: Yes Family/Social History: Unknown Family HX Smoking Status: Heavy Smoker > 10 Cigarettes Daily Hx Alcohol Use: No Hx Substance Use: Yes (Heroin use (40-50)) Hx Substance Use Treatment: No Allergies/Home Meds Allergies/Adverse Reactions: Allergies iodine Allergy (Verified 09/08/17 22:05) RASH shellfish derived Allergy (Verified 09/08/17 22:05) RASH ct scan dye Allergy (Uncoded 09/08/17 22:05) RASH hives Home Medications: Home Meds Medication Instructions Recorded Confirmed Buprenorphine [Sublocade] 1 imp IM QWK 12/11/17 12/11/17 Review of Systems - Physician Review All systems were reviewed & negative as marked: Yes - Review of Systems Constitutional: Normal. absent: Fevers Eyes: Normal ENT: Normal Respiratory: Normal. absent: SOB, Cough Cardiovascular: Normal. absent: Chest Pain Gastrointestinal: Normal. absent: Diarrhea, Nausea, Vomiting Genitourinary Male: Other (+right inguinal pain). absent: Hematuria Musculoskeletal: Normal. absent: Back Pain, Neck Pain Skin: Normal. absent: Rash Neurological: Normal. absent: Headache, Dizziness Endocrine: Normal Hemo/Lymphatic: Normal Psychiatric: Normal Physical Exam Vital Signs Reviewed: Yes Vital Signs Temp Pulse Resp BP Pulse Ox 12/12/17 02:51 75 16 110/72 100 12/12/17 00:00 97.8 F 72 18 107/66 96 Temperature: Afebrile Blood Pressure: Normal Pulse: Regular Respiratory Rate: Normal Appearance: Positive for: Well-Appearing, Non-Toxic, Comfortable Pain Distress: None Mental Status: Positive for: Alert and Oriented X 3 - Systems Exam Head: Present: Atraumatic, Normocephalic Pupils: Present: PERRL Extroacular Muscles: Present: EOMI Conjunctiva: Present: Normal Mouth: Present: Moist Mucous Membranes Neck: Present: Normal Range of Motion Respiratory/Chest: Present: Clear to Auscultation, Good Air Exchange. No: Respiratory Distress, Accessory Muscle Use Cardiovascular: Present: Regular Rate and Rhythm, Normal S1, S2. No: Murmurs Abdomen: Present: Tenderness (Tenderness to right groin). No: Distention, Peritoneal Signs Back: Present: Normal Inspection Upper Extremity: Present: Normal Inspection. No: Cyanosis, Edema Lower Extremity: Present: Normal Inspection. No: Edema Neurological: Present: GCS=15, CN II-XII Intact, Speech Normal Skin: Present: Warm, Dry, Normal Color. No: Rashes Psychiatric: Present: Alert, Oriented x 3, Normal Insight, Normal Concentration Medical Decision Making ED Course and Treatment: 12/11/17 23:30 Impression: 37 year old male complaining of right groin/inguinal hernia pain. Plan: -- CT Abdomen and Pelvis w/o contrast -- Labs, lipase -- Urinalysis -- Toradol -- Reassess and disposition Prior Visits: Notes and results from previous visits were reviewed. Progress Notes: 12/12/17 01:45 CT Abdomen and Pelvis shows: Lung bases: Stable right lung base tiny nodules measuring up to 5 mm. ABDOMEN: Liver: Unremarkable. Gallbladder and bile ducts: The gallbladder is contracted but otherwise normal. No calcified stones. No ductal dilation. Pancreas: Unremarkable. No ductal dilation. Spleen: There is mild nonspecific splenomegaly. Adrenals: Unremarkable. No mass. Kidneys and ureters: The left kidney is markedly atrophic and calcified. The right kidney is normal. There is no evidence of hydronephrosis. Stomach and bowel: Unremarkable. No obstruction. No mucosal thickening. There is no wall thickening or pericolonic stranding to suggest colitis. The PELVIS: Appendix: No appendix is specifically identified. There is no evidence of fluid collections or inflammatory stranding in the right lower quadrant. Bladder: Unremarkable. No stones. Reproductive: Unremarkable as visualized. ABDOMEN and PELVIS: Intraperitoneal space: Unremarkable. No free air. No significant fluid collection. Bones/joints: No acute fracture. No dislocation. Soft tissues: There is a nonobstructing right inguinal hernia. Vasculature: Unremarkable. No abdominal aortic aneurysm. Lymph nodes: Stable mildly prominent bilateral inguinal lymph nodes. Stable subcentimeter retroperitoneal lymph nodes. IMPRESSION: No evidence of an acute intra-abdominal or pelvic abnormality. Subcentimeter right lung base pulmonary nodules, unchanged. For low-risk patients, no followup is necessary. For high-risk patients (smoking history or other known risk factors) an optional chest CT at 12 months could be performed. Stable right inguinal hernia. Markedly atrophic left kidney with renal calcification. 12/12/17 02:51 On re-evaluation, patient feels better and is in no acute distress. I have discussed the results and plan with the patient, who expresses understanding. Patient in agreement with plan to be discharged home. Patient is stable for discharge. Patient was instructed to follow up with physician or return if symptoms worsen or new concerning symptoms arise. - Lab Interpretations Lab Results: 12/11/17 23:45 12/11/17 23:45 Lab Results 12/12/17 01:55: Urine Color Yellow, Urine Appearance Clear, Urine pH 6.5, Ur Specific Plummer 1.025, Urine Protein Trace H, Urine Glucose (UA) Negative, Urine Ketones Negative, Urine Blood Negative, Urine Nitrate Negative, Urine Bilirubin Negative, Urine Urobilinogen 1.0 H, Ur Leukocyte Esterase Negative, Urine RBC 0 - 2, Urine WBC 0 - 2, Ur Epithelial Cells 0 - 2 12/11/17 23:45: Sodium 143, Potassium 4.2, Chloride 104, Carbon Dioxide 30, Anion Gap 13, BUN 19, Creatinine 1.2, Est GFR ( Amer) > 60, Est GFR (Non- Af Amer) > 60, Random Glucose 102, Calcium 9.0, Magnesium 1.9, Total Bilirubin 0.2, AST 72 H D, ALT 165 H, Alkaline Phosphatase 61, Total Protein 7.4, Albumin 3.9, Globulin 3.5, Albumin/Globulin Ratio 1.1, Lipase 116 12/11/17 23:45: WBC 3.7 L, RBC 5.55, Hgb 13.7 L, Hct 42.1, MCV 75.9 L, MCH 24.7 L, MCHC 32.5, RDW 16.2 H, Plt Count 120, MPV 9.4, Gran % 43.4 L, Lymph % (Auto) 43.2 H, Bollinger % (Auto) 8.3 H, Eos % (Auto) 4.6, Baso % (Auto) 0.5, Gran # 1.62, Lymph # (Auto) 1.6, Bollinger # (Auto) 0.3, Eos # (Auto) 0.2, Baso # (Auto) 0.02 I have reviewed the lab results: Yes - RAD Interpretation Radiology Orders: 12/11/17 23:30 ABD & PELVIS W/O PO OR IV CONT [CT] Stat [employer] 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 No Sleep Is patient sleeping during reassessment? No Presence of Pain Presence of Pain Yes Pain Scale Used Pain Scale Used Numeric Location Pain Location Body Site Abdomen Description Description Intermittent Intensity of Pain at present 6 IVP Administration Document 12/11/17 23:39 MS (Rec: 12/11/17 23:40 MS [id number]) Charges for Administration # of IVP Administrations 1 - Scribe Statement The provider has reviewed the documentation as recorded by the Doris Masters Provider Rafaelaibe Attestation: All medical record entries made by the Scribe were at my direction and personally dictated by me. I have reviewed the chart and agree that the record accurately reflects my personal performance of the history, physical exam, medical decision making, and the department course for this patient. I have also personally directed, reviewed, and agree with the discharge instructions and disposition. Disposition/Present on Arrival - Present on Arrival Any Indicators Present on Arrival: No History of DVT/PE: No History of Uncontrolled Diabetes: No Urinary Catheter: No History of Decub. Ulcer: No History Surgical Site Infection Following: None - Disposition Have Diagnosis and Disposition been Completed?: Yes Diagnosis: Inguinal hernia of right side without obstruction or gangrene Disposition: HOME/ ROUTINE Disposition Time: 02:50 Condition: GOOD Discharge Instructions (ExitCare): Inguinal and Femoral (Groin) Hernias Referrals: Humberto Johnson MD [Primary Care Provider] - Follow up with primary Forms: [employer] ([place])
[2017-12-12 00:20] LABS: BASO # 0.02 K/mm3 (0.0-2.0); BASO % 0.5 % (0.0-3.0); EOS # 0.2 (0.0-0.7); EOS % 4.6 % (1.5-5.0); GRAN # 1.62 (1.4-6.5); GRAN % 43.4 % (50.0-68.0); HEMOGLOBIN 13.7 g/dL (14.0-18.0); LYMPH # 1.6 (1.2-3.4); LYMPH % 43.2 % (22.0-35.0); MEAN CELL VOLUME 75.9 fl (80.0-105.0); MEAN CORPUSCULAR HEMOGLOBIN 24.7 pg (25.0-35.0); MEAN CORPUSCULAR HGB CONC 32.5 g/dl (31.0-37.0); MEAN PLATELET VOLUME 9.4 fl (7.0-11.0); MONO # 0.3 (0.1-0.6); MONO % 8.3 % (1.0-6.0); RBC 5.55 10^6/uL (3.5-6.1); RED CELL DISTRIBUTION WIDTH 16.2 % (11.5-14.5); WHITE BLOOD COUNT 3.7 10^3/ul (4.5-11.0)
[2017-12-12 00:30] LABS: BLOOD UREA NITROGEN 19 mg/dL (7-21); GFR AFRICAN-AMERICAN > 60; GFR NON-AFRICAN AMERICAN > 60
[2017-12-12 00:31] LABS: ALB/GLOB RATIO 1.1 (1.1-1.8); ALBUMIN 3.9 g/dL (3.0-4.8); ALT/SGPT 165 U/L (7-56); AST/SGOT 72 U/L (17-59); LIPASE 116 U/L (23-300)
--- NOTE | 2017-12-12 01:23 | CT ---
EXAM: CT Abdomen and Pelvis Without Intravenous Contrast CLINICAL HISTORY: 37 years old, male; Pain; Abdominal pain; Other: Groin; Additional info: Rt groin pain TECHNIQUE: Axial computed tomography images of the abdomen and pelvis without intravenous contrast. All CT scans at this facility use one or more dose reduction techniques, viz.: automated exposure control; ma/kV adjustment per patient size (including targeted exams where dose is matched to indication; i.e. head); or iterative reconstruction technique. Coronal and sagittal reformatted images were created and reviewed. COMPARISON: CT - ABD PELVIS W/O PO OR IV CONT 2017-09-08 23:34 FINDINGS: Lung bases: Stable right lung base tiny nodules measuring up to 5 mm. ABDOMEN: Liver: Unremarkable. Gallbladder and bile ducts: The gallbladder is contracted but otherwise normal. No calcified stones. No ductal dilation. Pancreas: Unremarkable. No ductal dilation. Spleen: There is mild nonspecific splenomegaly. Adrenals: Unremarkable. No mass. Kidneys and ureters: The left kidney is markedly atrophic and calcified. The right kidney is normal. There is no evidence of hydronephrosis. Stomach and bowel: Unremarkable. No obstruction. No mucosal thickening. There is no wall thickening or pericolonic stranding to suggest colitis. The PELVIS: Appendix: No appendix is specifically identified. There is no evidence of fluid collections or inflammatory stranding in the right lower quadrant. Bladder: Unremarkable. No stones. Reproductive: Unremarkable as visualized. ABDOMEN and PELVIS: Intraperitoneal space: Unremarkable. No free air. No significant fluid collection. Bones/joints: No acute fracture. No dislocation. Soft tissues: There is a nonobstructing right inguinal hernia. Vasculature: Unremarkable. No abdominal aortic aneurysm. Lymph nodes: Stable mildly prominent bilateral inguinal lymph nodes. Stable subcentimeter retroperitoneal lymph nodes. IMPRESSION: No evidence of an acute intra-abdominal or pelvic abnormality. Subcentimeter right lung base pulmonary nodules, unchanged. For low-risk patients, no follow-up is necessary. For high-risk patients (smoking history or other known risk factors) an optional chest CT at 12 months could be performed. Stable right inguinal hernia. Markedly atrophic left kidney with renal calcification.
[2017-12-12 01:47] VITALS: TEMP 97.8
[2017-12-12 02:15] LABS: PH,URINE 6.5 (4.7-8.0); URINE BILIRUBIN NEGATIVE (NEGATIVE); URINE BLOOD NEGATIVE (NEGATIVE); URINE GLUCOSE (UA) NEGATIVE (NEGATIVE); URINE LEUKOCYTE ESTERASE NEGATIVE Leu/uL (NEGATIVE); URINE PROTEIN TRACE mg/dL (<30 mg/dL)
[2017-12-12 02:37] LABS: URINE APPEARANCE CLEAR (CLEAR); URINE COLOR YELLOW (YELLOW)
[2017-12-12 02:40] LABS: URINE EPITHELIAL CELLS 0 - 2 /hpf (0-5); URINE RBC 0 - 2 /hpf (0-2); URINE WBC 0 - 2 /hpf (0-6)
[2017-12-12 02:57] VITALS: BP 110/72; PULSE 75; RESP 16; O2SAT 100
== END 2017-12-12 02:51 | disposition home or self-care (01) ==
LOC: ED 22:58
DX: K40.90 Unilateral inguinal hernia, without obstruction or gangrene, not specified as recurrent (principal)
CPT/HCPCS: 74176; 80053; 81001; 83690; 83735; 85025; 96374; 99283; J1885